=== PATIENT | female | born 1950 | race African-American/Black ===

== ENCOUNTER 2016-09-30 15:03 | Inpatient (IN) | payer MEDICARE, OTHER ==
[~2016-09-30] VITALS: Ht 165.1 cm; Wt 73.2 kg
[~2016-09-30 15:03] MED LIST: ACET-2902 PO; ALBU8HFA IH; ASPI-1093 PO; B CO1CAP4 PO; EPOE10003 SQ; FERR-89 PO; GABA-531 PO; HEPA500017 SQ; INSNOV SQ; ISOS10TA16 PO; LAMO100 PO; LEVE500T53 PO; MIDO5TAB PO; PANT40TA25 PO; SIMV-260 PO
[2016-09-30 15:37] LABS: GLUCOSE,POINT OF CARE 99 MG/DL (70-110)
[2016-09-30] MEDS ORDERED: DONNATAL/LIDOCAINE/MAALOX 55 ML BOTTLE PO ONE (16:15)
[2016-09-30 17:31] LABS: BASOPHILS % (AUTO) 0.2 % (0.0-2.0); EOSINOPHILS % (AUTO) 2.5 % (1.0-6.0); HEMATOCRIT 38.5 % (36-46); HEMOGLOBIN 11.9 g/dL (12.0-16.0); LYMPHOCYTES % (AUTO) 13.4 % (22.0-44.0); MEAN CORPUSCULAR HEMOGLOBIN 27.4 pg (26.0-34.0); MEAN CORPUSCULAR HGB CONC 30.8 G/dL (31.0-37.0); MEAN CORPUSCULAR VOLUME 89 fL (80-100); MONOCYTES # (AUTO) 0.6 K/uL (0.1-1.0); MONOCYTES % (AUTO) 8.3 % (2.0-9.0); NEUTROPHILS # (AUTO) 5.9 K/uL (1.8-7.7); NEUTROPHILS % (AUTO) 75.6 % (40.0-70.0); PLATELET COUNT (AUTO) 342 K/uL (150-450); RED BLOOD CELL COUNT(AUTO) 4.33 MIL/uL (4.00-5.20); WHITE BLOOD COUNT (AUTO) 7.8 K/uL (4.5-11.0)
[2016-09-30] MEDS ORDERED: BARIUM SULFATE 0.1% SUSPENSION 450 ML BOTTLE PO ONE (17:45)
[2016-09-30 18:03] LABS: CALCIUM, TOTAL 7.9 mg/dL (8.8-10.5); CREATININE 6.88 mg/dL (0.60-1.30); POTASSIUM 4.8 mmol/L (3.5-5.1)
[2016-09-30 18:10] LABS: ALBUMIN 3.4 g/dL (3.4-5.0); BILIRUBIN,TOTAL 0.5 mg/dL (0.1-1.0); TOTAL PROTEIN, SERUM 7.2 g/dL (6.4-8.2)
[2016-09-30] MEDS ORDERED: MAGNESIUM HYDROXIDE SUSPENSION 30 ML UDCUP PO PRN (23:00)
[2016-09-30] MEDS ORDERED: ONDANSETRON HCL 4 MG/2 ML VIAL IVP PRN (23:00)
[2016-09-30] MEDS ORDERED: ZOLPIDEM TARTRATE 5 MG TABLET PO PRN (23:00)
[2016-09-30 23:58] LABS: CALCIUM, TOTAL 7.4 mg/dL (8.8-10.5); CREATININE 7.05 mg/dL (0.60-1.30); POTASSIUM 4.5 mmol/L (3.5-5.1)
[2016-10-01 00:03] LABS: ALBUMIN 3.2 g/dL (3.4-5.0); BILIRUBIN,TOTAL 0.4 mg/dL (0.1-1.0); TOTAL PROTEIN, SERUM 6.7 g/dL (6.4-8.2)
[2016-10-01 00:15] VITALS: BP 118/63
[2016-10-01] MEDS: LevETIRAcetam 500 MG TABLET PO SCH ×2 (00:57→08:08)
[2016-10-01] MEDS: SIMVASTATIN 20 MG TABLET PO SCH (00:57)
[2016-10-01] MEDS: HEPARIN SODIUM,PORCINE 5,000 UNITS/ML VIAL SQ SCH ×3 (01:00→16:25)
[2016-10-01] MEDS: ACETAMINOPHEN 325 MG TABLET PO PRN ×2 (01:28→20:43)
[2016-10-01 04:34] VITALS: BP 106/56
[2016-10-01 07:17] LABS: GLUCOSE COMMENT 1 Juice/Food/D50 Given; GLUCOSE,POINT OF CARE 66 MG/DL (70-110)
[2016-10-01 07:17] LABS: GLUCOSE,POINT OF CARE 80 MG/DL (70-110)
[2016-10-01 07:29] VITALS: BP 125/89
[2016-10-01 07:41] LABS: BASOPHILS % (AUTO) 0.3 % (0.0-2.0); EOSINOPHILS % (AUTO) 5.8 % (1.0-6.0); HEMATOCRIT 36.6 % (36-46); HEMOGLOBIN 11.3 g/dL (12.0-16.0); LYMPHOCYTES # (AUTO) 1.4 K/uL (1.0-4.8); LYMPHOCYTES % (AUTO) 20.3 % (22.0-44.0); MEAN CORPUSCULAR HEMOGLOBIN 27.7 pg (26.0-34.0); MEAN CORPUSCULAR HGB CONC 30.9 G/dL (31.0-37.0); MEAN CORPUSCULAR VOLUME 90 fL (80-100); MONOCYTES # (AUTO) 0.5 K/uL (0.1-1.0); MONOCYTES % (AUTO) 7.1 % (2.0-9.0); NEUTROPHILS # (AUTO) 4.4 K/uL (1.8-7.7); NEUTROPHILS % (AUTO) 66.5 % (40.0-70.0); PLATELET COUNT (AUTO) 334 K/uL (150-450); RED BLOOD CELL COUNT(AUTO) 4.08 MIL/uL (4.00-5.20); RED CELL DISTRIBUTION WIDTH 17.2 % (11.5-14.5); WHITE BLOOD COUNT (AUTO) 6.7 K/uL (4.5-11.0)
[2016-10-01] MEDS: ASPIRIN 81 MG EC TABLET PO SCH (08:07)
[2016-10-01] MEDS: GABAPENTIN 300 MG CAPSULE PO SCH (08:07)
[2016-10-01] MEDS: LamoTRIgine 100 MG TABLET PO SCH (08:08)
[2016-10-01] MEDS: VITAMIN B COMP/VIT C/FOLIC ACID CAPSULE PO SCH (08:08)
[2016-10-01] MEDS: PANTOPRAZOLE SODIUM 40 MG DR TABLET PO SCH (08:08)
[2016-10-01] MEDS: ISOSORBIDE DINITRATE 10 MG TABLET PO SCH ×2 (09:00→16:00)
[2016-10-01] MEDS ORDERED: PANTOPRAZOLE SODIUM 40 MG DR TABLET PO SCH (09:00)
[2016-10-01 10:53] LABS: RBC MORPHOLOGY COMMENT ABNORMAL RBC MORPH
[2016-10-01 11:55] VITALS: BP 157/80
[2016-10-01] MEDS ORDERED: LIDOCAINE HCL/PF 1% 2 ML VIAL INJ ONE (12:00)
[2016-10-01 16:45] VITALS: BP 126/66
[2016-10-01 18:32] LABS: GLUCOSE,POINT OF CARE 116 MG/DL (70-110)
[2016-10-01 18:32] LABS: GLUCOSE,POINT OF CARE 79 MG/DL (70-110)
[2016-10-01 19:16] VITALS: BP 141/62
[2016-10-02 00:07] LABS: GLUCOSE,POINT OF CARE 107 MG/DL (70-110)
[2016-10-02] MEDS: LevETIRAcetam 500 MG TABLET PO SCH ×2 (01:21→09:19)
[2016-10-02] MEDS: ISOSORBIDE DINITRATE 10 MG TABLET PO SCH ×2 (01:21→09:19)
[2016-10-02] MEDS: SIMVASTATIN 20 MG TABLET PO SCH (01:21)
[2016-10-02] MEDS: GABAPENTIN 300 MG CAPSULE PO SCH ×2 (01:22→09:19)
[2016-10-02] MEDS: LamoTRIgine 100 MG TABLET PO SCH ×2 (01:22→09:19)
[2016-10-02] MEDS: HEPARIN SODIUM,PORCINE 5,000 UNITS/ML VIAL SQ SCH ×2 (01:27→09:19)
[2016-10-02 01:41] VITALS: BP 114/69
[2016-10-02 04:11] VITALS: BP 114/64
[2016-10-02 07:34] LABS: EOSINOPHILS # (AUTO) 0.29 K/uL (0.00-0.70); EOSINOPHILS % (AUTO) 5.47 % (1.0-6.0); HEMATOCRIT 33.9 % (36-46); HEMOGLOBIN 10.6 g/dL (12.0-16.0); LYMPHOCYTES # (AUTO) 0.9 K/uL (1.0-4.8); LYMPHOCYTES % (AUTO) 16.5 % (22.0-44.0); MEAN CORPUSCULAR HEMOGLOBIN 28.1 pg (26.0-34.0); MEAN CORPUSCULAR HGB CONC 31.4 G/dL (31.0-37.0); MEAN CORPUSCULAR VOLUME 90 fL (80-100); MONOCYTES # (AUTO) 0.2 K/uL (0.1-1.0); PLATELET COUNT (AUTO) 295 K/uL (150-450); RED BLOOD CELL COUNT(AUTO) 3.78 MIL/uL (4.00-5.20); RED CELL DISTRIBUTION WIDTH 18.1 % (11.5-14.5); WHITE BLOOD COUNT (AUTO) 5.4 K/uL (4.5-11.0)
[2016-10-02 07:35] LABS: RBC MORPHOLOGY COMMENT ABNORMAL RBC MORPH
[2016-10-02 07:43] VITALS: BP 135/64
[2016-10-02 07:57] LABS: GLUCOSE,POINT OF CARE 96 MG/DL (70-110)
[2016-10-02] MEDS: VITAMIN B COMP/VIT C/FOLIC ACID CAPSULE PO SCH (09:19)
[2016-10-02] MEDS: ASPIRIN 81 MG EC TABLET PO SCH (09:19)
[2016-10-02] MEDS: PANTOPRAZOLE SODIUM 40 MG DR TABLET PO SCH (09:19)
[2016-10-02 11:15] VITALS: BP 143/69
[2016-10-02 12:02] LABS: GLUCOSE,POINT OF CARE 76 MG/DL (70-110)
[2016-10-02 14:15] LABS: HEPATITIS Bs ANTIGEN SCREEN P Negative (Negative); HEPATITIS C AB SCREEN <0.1 s/co ratio (0.0-0.9)
== END 2016-10-02 14:10 | disposition home or self-care (01) | DRG 391 ==
LOC: EMS 15:05 → 6N 22:20
PROVIDERS: ADMIT Hospitalist; ATTEND Hospitalist
PROC: 5A1D00Z (ICD-10-PCS; principal; 2016-10-01)
DX: R10.9 Unspecified abdominal pain (principal); N18.6 End stage renal disease; I50.22 Chronic systolic (congestive) heart failure; I13.2 Hypertensive heart and chronic kidney disease with heart failure and with stage 5 chronic kidney disease, or end stage renal disease; J44.9 Chronic obstructive pulmonary disease, unspecified; E11.22 Type 2 diabetes mellitus with diabetic chronic kidney disease; K21.9 Gastro-esophageal reflux disease without esophagitis; K76.0 Fatty (change of) liver, not elsewhere classified; D73.4 Cyst of spleen; N26.1 Atrophy of kidney (terminal); D50.9 Iron deficiency anemia, unspecified; K57.30 Diverticulosis of large intestine without perforation or abscess without bleeding; K59.00 Constipation, unspecified; I48.91 Unspecified atrial fibrillation; D25.9 Leiomyoma of uterus, unspecified; E78.5 Hyperlipidemia, unspecified; I45.81 Long QT syndrome; R56.9 Unspecified convulsions; I95.9 Hypotension, unspecified; E21.2 Other hyperparathyroidism; R74.0 Nonspecific elevation of levels of transaminase and lactic acid dehydrogenase [LDH]; E66.9 Obesity, unspecified; K42.9 Umbilical hernia without obstruction or gangrene; Z82.49 Family history of ischemic heart disease and other diseases of the circulatory system; Z83.3 Family history of diabetes mellitus; Z99.2 Dependence on renal dialysis; Z79.82 Long term (current) use of aspirin; Z88.1 Allergy status to other antibiotic agents; Z98.51 Tubal ligation status; Z90.89 Acquired absence of other organs; Z88.6 Allergy status to analgesic agent; Z86.73 Personal history of transient ischemic attack (TIA), and cerebral infarction without residual deficits; Z68.26 Body mass index [BMI] 26.0-26.9, adult; R14.1 Gas pain
CPT/HCPCS: 74022; 74176; 76700; 80074; 82962; 87081; 87340; 90935; 93005; 99285; J1644; J3490

== ENCOUNTER 2017-04-05 14:30 | Emergency (ER) | payer MEDICARE, OTHER ==
[~2017-04-05] VITALS: Ht 165.1 cm; Wt 86.0 kg
[~2017-04-05 14:30] MED LIST changes: -ASPI-1093 PO; +ASPI-1182 PO; -HEPA500017 SQ
[2017-04-05] MEDS ORDERED: PHOSLOC PO (14:47)
[2017-04-05] MEDS ORDERED: METR500 PO (14:47)
[2017-04-05] MEDS ORDERED: CIPR-278 PO (14:47)
[2017-04-05 14:51] LABS: GLUCOSE,POINT OF CARE 101 MG/DL (70-110)
[2017-04-05 17:41] LABS: CALCIUM, TOTAL 7.1 mg/dL (8.8-10.5); CREATININE 9.31 mg/dL (0.60-1.30); POTASSIUM 5.6 mmol/L (3.5-5.1)
[2017-04-05] MEDS ORDERED: SODIUM POLYSTYRENE SULFONATE 15 GM/60 ML SUSPENSION BOTTLE PO ONE (18:15)
[2017-04-05 18:16] VITALS: BP 134/80
== END 2017-04-05 18:30 | disposition home or self-care (01) ==
LOC: EMS 14:34
DX: S70.362A Insect bite (nonvenomous), left thigh, initial encounter (principal); S70.361A Insect bite (nonvenomous), right thigh, initial encounter; I13.2 Hypertensive heart and chronic kidney disease with heart failure and with stage 5 chronic kidney disease, or end stage renal disease; E11.22 Type 2 diabetes mellitus with diabetic chronic kidney disease; N18.6 End stage renal disease; I50.9 Heart failure, unspecified; J44.9 Chronic obstructive pulmonary disease, unspecified; I48.91 Unspecified atrial fibrillation; K21.9 Gastro-esophageal reflux disease without esophagitis; E78.00 Pure hypercholesterolemia, unspecified; F17.210 Nicotine dependence, cigarettes, uncomplicated; Z86.73 Personal history of transient ischemic attack (TIA), and cerebral infarction without residual deficits; Z99.2 Dependence on renal dialysis; Z79.82 Long term (current) use of aspirin; Z88.5 Allergy status to narcotic agent; Z88.1 Allergy status to other antibiotic agents; W57.XXXA Bitten or stung by nonvenomous insect and other nonvenomous arthropods, initial encounter; Y93.89 Activity, other specified; Y92.89 Other specified places as the place of occurrence of the external cause; Y99.8 Other external cause status
CPT/HCPCS: 82962; 93005; 99285

== ENCOUNTER 2017-06-09 07:00 | Emergency (ER) | payer MEDICARE, OTHER ==
[~2017-06-09] VITALS: Ht 165.1 cm; Wt 77.3 kg
[~2017-06-09 07:00] MED LIST changes: +CIPR-278 PO; -INSNOV SQ; +METR500 PO; +PHOSLOC PO
[2017-06-09] MEDS ORDERED: AZITHROMYCIN 250 MG TABLET PO ONE (09:30)
[2017-06-09] MEDS ORDERED: IPRATROPIUM BROMIDE 0.5 MG/2.5 ML NEB SOLUTION NEB ONE (09:30)
[2017-06-09] MEDS ORDERED: ALBUTEROL SULFATE 5 MG/ML 20 ML NEB SOLN [BULK] NEB ONE (09:30)
[2017-06-09] MEDS ORDERED: 0.9% SODIUM CHLORIDE 5 ML NEB SOLUTION NEB ONE (10:43)
[2017-06-09 12:25] VITALS: BP 133/64
== END 2017-06-09 13:16 | disposition home or self-care (01) ==
LOC: EMS 07:03
DX: J81.1 Chronic pulmonary edema (principal); J40 Bronchitis, not specified as acute or chronic; I13.2 Hypertensive heart and chronic kidney disease with heart failure and with stage 5 chronic kidney disease, or end stage renal disease; N18.6 End stage renal disease; I50.9 Heart failure, unspecified; I48.91 Unspecified atrial fibrillation; E78.00 Pure hypercholesterolemia, unspecified; E11.9 Type 2 diabetes mellitus without complications; J44.9 Chronic obstructive pulmonary disease, unspecified; F17.210 Nicotine dependence, cigarettes, uncomplicated; Z99.2 Dependence on renal dialysis; Z88.1 Allergy status to other antibiotic agents; Z88.5 Allergy status to narcotic agent
CPT/HCPCS: 94640; 99283

== ENCOUNTER 2017-08-23 10:12 | Inpatient (IN) | payer MEDICARE, MEDICAID ==
[~2017-08-23] VITALS: Ht 165.1 cm; Wt 92.0 kg
[~2017-08-23 10:12] MED LIST changes: -ASPI-1182 PO; -CIPR-278 PO; -FERR-89 PO; -METR500 PO; -MIDO5TAB PO
[2017-08-23] MEDS ORDERED: ALBUTEROL SULFATE 5 MG/ML 20 ML NEB SOLN [BULK] NEB ONE (10:45)
[2017-08-23] MEDS ORDERED: IPRATROPIUM BROMIDE 0.5 MG/2.5 ML NEB SOLUTION NEB ONE (10:45)
[2017-08-23] MEDS ORDERED: MethylPREDNISolone SOD SUCC 125 MG/2 ML VIAL IVP ONE (10:45)
[2017-08-23] MEDS ORDERED: ACETAMINOPHEN 500 MG TABLET PO ONE (13:15)
[2017-08-23 13:59] LABS: BASOPHILS % (AUTO) 0.2 % (0.0-2.0); EOSINOPHILS % (AUTO) 1.1 % (1.0-6.0); HEMATOCRIT 34.7 % (36-46); LYMPHOCYTES # (AUTO) 0.8 K/uL (1.0-4.8); MEAN CORPUSCULAR HEMOGLOBIN 30.1 pg (26.0-34.0); MEAN CORPUSCULAR HGB CONC 31.7 G/dL (31.0-37.0); MEAN CORPUSCULAR VOLUME 95 fL (80-100); MONOCYTES # (AUTO) 0.8 K/uL (0.1-1.0); NEUTROPHILS # (AUTO) 5.3 K/uL (1.8-7.7); NEUTROPHILS % (AUTO) 76.7 % (40.0-70.0); PLATELET COUNT (AUTO) 190 K/uL (150-450); RED BLOOD CELL COUNT(AUTO) 3.64 MIL/uL (4.00-5.20); RED CELL DISTRIBUTION WIDTH 17.2 % (11.5-14.5)
[2017-08-23 14:08] LABS: ANION GAP 12 mmol/L (8-16); CALCIUM, TOTAL 7.4 mg/dL (8.8-10.5); CARBON DIOXIDE 32 mmol/L (22-29); CHLORIDE 99 mmol/L (98-107); GLOMERULAR FILTR. RATE CALC 6 mL/min (>60); GLUCOSE,RANDOM 145 mg/dL (70-110); POTASSIUM 4.6 mmol/L (3.5-5.1); SODIUM SERUM 143 mmol/L (136-145); UREA NITROGEN, BLOOD 59 mg/dL (7-18)
[2017-08-23 14:14] LABS: ALANINE AMINOTRANSFERASE 41 U/L (12-78); ALBUMIN 3.1 g/dL (3.4-5.0); ALKALINE PHOSPHATASE 141 U/L (46-116); ASPARTATE AMINOTRANSFERASE 34 U/L (15-37); BILIRUBIN,TOTAL 1.6 mg/dL (0.1-1.0); CREATINE KINASE, TOTAL 71 U/L (26-192); TOTAL PROTEIN, SERUM 6.6 g/dL (6.4-8.2)
[2017-08-23] MEDS ORDERED: HydrOXYzine PAMOATE 50 MG CAPSULE PO ONE (14:30)
[2017-08-23] MEDS ORDERED: ACETAMINOPHEN 325 MG TABLET PO PRN (14:45)
[2017-08-23] MEDS ORDERED: ONDANSETRON HCL 4 MG/2 ML VIAL IVP PRN (14:45)
[2017-08-23] MEDS ORDERED: BISACODYL 10 MG RECTAL RECTAL SUPPOSITORY PR PRN (14:45)
[2017-08-23] MEDS ORDERED: ALBUTEROL SULFATE 2.5 MG/0.5 ML NEB SOLUTION NEB SCH (15:00)
[2017-08-23] MEDS ORDERED: IPRATROPIUM BROMIDE 0.5 MG/2.5 ML NEB SOLUTION NEB SCH (15:00)
[2017-08-23 15:38] LABS: ABG A-A DIFF O2 87.6 mmHg (10-20.0); ABG BASE EXCESS -0.1 mmol/L (-2.0-3.0); ABG CARBOXYHEMOGLOBIN 1.1 % (0.0-1.5); ABG HCO3 22.9 mmol/L (22.0-26.0); ABG METHEMOGLOBIN 0.3 % (0.0-1.5); ABG OXYGEN SATURATION 96.3 % (95.0-98.0); ABG TOTAL HEMOGLOBIN 11.9 G/dL (12.0-18.0); O2 DEVICE,BLOOD GAS VENTI MASK (ROOM AIR); PO2, ARTERIAL BG 104.1 mmHg (79.0-87.0); SITE, BLOOD GAS RT RADIAL; SOURCE, BLOOD GAS ARTERIAL
[2017-08-23 15:49] LABS: INFLUENZA TYPE A NEGATIVE FOR TYPE A (NEGATIVE); INFLUENZA TYPE B NEGATIVE FOR TYPE B (NEGATIVE)
[2017-08-23 15:59] LABS: ABG PCO2 82 mmHg (35-45); ABG PH 7.161 (7.35-7.450)
[2017-08-23 16:26] LABS: ABG BASE EXCESS 1.6 mmol/L (-2.0-3.0); ABG HCO3 24.3 mmol/L (22.0-26.0); ABG METHEMOGLOBIN 0.2 % (0.0-1.5); ABG OXYHEMOGLOBIN 94.8 % (94.0-100.0); ABG TOTAL HEMOGLOBIN 11.9 G/dL (12.0-18.0); PO2, ARTERIAL BG 99.7 mmHg (79.0-87.0); SOURCE, BLOOD GAS ARTERIAL
[2017-08-23 16:28] LABS: ABG PCO2 82 mmHg (35-45); ABG PH 7.182 (7.35-7.450); O2 DEVICE,BLOOD GAS BIPAP (ROOM AIR); SITE, BLOOD GAS RT RADIAL
[2017-08-23] MEDS ORDERED: RAPID SEQUENCE KIT [RSI] 1 EACH KIT ONE (16:33)
[2017-08-23] MEDS ORDERED: SODIUM CHLORIDE 0.9% 2,000 ML IV ONE (16:38)
[2017-08-23] MEDS ORDERED: VECURONIUM BROMIDE 10 MG/VIAL IVP ONE ×2 (16:40→16:45)
[2017-08-23] MEDS ORDERED: ETOMIDATE 2 MG/ML 10 ML VIAL IV ONE (16:40)
[2017-08-23] MEDS ORDERED: ETOMIDATE 2 MG/ML 10 ML VIAL IVP ONE (16:45)
[2017-08-23] MEDS ORDERED: PROPOFOL 1000 MG/ISO-OSM 100 ML IV PRN (16:45)
[2017-08-23 17:22] LABS: ABG A-A DIFF O2 130.5 mmHg (10-20.0); ABG BASE EXCESS -0.8 mmol/L (-2.0-3.0); ABG HCO3 23.5 mmol/L (22.0-26.0); ABG METHEMOGLOBIN 0.3 % (0.0-1.5); ABG OXYGEN CONTENT 18.6 mL/dL (15.0-23.0); ABG OXYGEN SATURATION 99.7 % (95.0-98.0); ABG OXYHEMOGLOBIN 98.4 % (94.0-100.0); ABG PCO2 48 mmHg (35-45); ABG PH 7.335 (7.35-7.450); ABG TOTAL HEMOGLOBIN 12.4 G/dL (12.0-18.0); O2 DEVICE,BLOOD GAS VENTILATOR (ROOM AIR); PO2, ARTERIAL BG 535.4 mmHg (79.0-87.0); SITE, BLOOD GAS RT RADIAL; SOURCE, BLOOD GAS ARTERIAL
[2017-08-23 17:23] LABS: PEEP,BG 0 cm H2O; VT, ABG 550 ml
[2017-08-23] MEDS: MethylPREDNISolone SOD SUCC 125 MG/2 ML VIAL IVP SCH (18:45)
[2017-08-23] MEDS ORDERED: MANNITOL 25%-12.5 GM/50 ML VIAL IVP PRN (18:45)
[2017-08-23] MEDS: VITAMIN B COMP/VIT C/FOLIC ACID CAPSULE PO SCH (18:46)
[2017-08-23] MEDS: ALBUTEROL SULFATE 2.5 MG/0.5 ML NEB SOLUTION NEB PRN (19:49)
[2017-08-23] MEDS: IPRATROPIUM BROMIDE 0.5 MG/2.5 ML NEB SOLUTION NEB PRN (19:49)
[2017-08-23 20:00] VITALS: BP 135/70
[2017-08-23] MEDS ORDERED: LevETIRAcetam 500 MG TABLET PO SCH (21:00)
[2017-08-23] MEDS: HEPARIN SODIUM,PORCINE 5,000 UNITS/ML VIAL SQ SCH (22:35)
[2017-08-23] MEDS: DOCUSATE SODIUM 100 MG CAPSULE PO SCH (22:35)
[2017-08-23] MEDS ORDERED: VANCOMYCIN HCL 1 GM/D5% WATER 200 ML IV PRN (22:45)
[2017-08-23] MEDS ORDERED: VANCOMYCIN HCL 1 GM/D5% WATER 200 ML IV ONE (23:30)
[2017-08-24] VITALS: BP 144/76
[2017-08-24] MEDS ORDERED: SODIUM CHLORIDE 0.9% 250 ML IV ONE (00:31)
[2017-08-24] MEDS: PIPERACILLIN SODIUM/TAZOBACTAM 2.25 GM in DEXTROSE 5%-WATER 50 ML IV SCH ×3 (00:34→23:31)
[2017-08-24] MEDS: MethylPREDNISolone SOD SUCC 125 MG/2 ML VIAL IVP SCH ×5 (00:50→23:32)
[2017-08-24] MEDS: PROPOFOL 1000 MG/ISO-OSM 100 ML IV PRN ×3 (01:49→20:37)
[2017-08-24] MEDS: ALBUTEROL SULFATE 2.5 MG/0.5 ML NEB SOLUTION NEB PRN ×3 (01:59→22:03)
[2017-08-24] MEDS: IPRATROPIUM BROMIDE 0.5 MG/2.5 ML NEB SOLUTION NEB PRN ×3 (01:59→22:03)
[2017-08-24 04:00] VITALS: BP 110/59
[2017-08-24] MEDS ORDERED: VANCOMYCIN HCL 1 GM/D5% WATER 200 ML IV ONE (04:00)
[2017-08-24 05:28] LABS: HEMATOCRIT 34.3 % (36-46); HEMOGLOBIN 11.2 g/dL (12.0-16.0); MEAN CORPUSCULAR HEMOGLOBIN 30.7 pg (26.0-34.0); MEAN CORPUSCULAR HGB CONC 32.6 G/dL (31.0-37.0); MEAN CORPUSCULAR VOLUME 94 fL (80-100); PLATELET COUNT (AUTO) 187 K/uL (150-450); RED BLOOD CELL COUNT(AUTO) 3.64 MIL/uL (4.00-5.20); RED CELL DISTRIBUTION WIDTH 16.8 % (11.5-14.5)
[2017-08-24 05:35] LABS: CALCIUM, TOTAL 8.1 mg/dL (8.8-10.5); CREATININE 5.75 mg/dL (0.60-1.30); MAGNESIUM 1.7 mg/dL (1.80-2.40); PHOSPHORUS 3.6 mg/dL (2.5-4.9); POTASSIUM 5.2 mmol/L (3.5-5.1)
[2017-08-24 05:55] LABS: THYROID STIMULATING HORMONE 0.52 uIU/mL (0.36-3.74)
[2017-08-24] MEDS ORDERED: INFLUENZA VIRUS VACCINE QVS 2017-18 (3YR+)/PF 60 MCG/0.5 ML SYRINGE IM ONE (06:30)
[2017-08-24] MEDS ORDERED: PNEUMOCOCCAL VACCINE POLYVALENT 0.5 ML VIAL [PPSV23] IM ONE (06:30)
[2017-08-24 06:32] LABS: BAND NEUTROPHILS % (MANUAL) 43 % (1-5); LYMPHOCYTES % (MANUAL) 8 % (22-44); MONOCYTES % (MANUAL) 3 % (2-9); SEGMENTED NEUTROPHILS % 46 % (40-70)
[2017-08-24 08:00] VITALS: BP 119/59
[2017-08-24] MEDS ORDERED: DEXTROSE 50%-WATER 25 GM/50 ML SYRINGE IVP PRN (08:00)
[2017-08-24] MEDS ORDERED: MAGNESIUM OXIDE 400 MG TABLET NG ONE (08:15)
[2017-08-24] MEDS: LevETIRAcetam 500 MG in DEXTROSE 5%-WATER 100 ML IV SCH ×2 (08:24→20:32)
[2017-08-24] MEDS: HEPARIN SODIUM,PORCINE 5,000 UNITS/ML VIAL SQ SCH (08:32)
[2017-08-24] MEDS: LamoTRIgine 100 MG TABLET PO SCH ×2 (08:32→20:49)
[2017-08-24] MEDS: VITAMIN B COMP/VIT C/FOLIC ACID CAPSULE PO SCH (08:32)
[2017-08-24] MEDS: PANTOPRAZOLE SODIUM 40 MG DR TABLET PO SCH (08:33)
[2017-08-24 09:28] LABS: ABG A-A DIFF O2 168.5 mmHg (10-20.0); ABG BASE EXCESS -0.7 mmol/L (-2.0-3.0); ABG CARBOXYHEMOGLOBIN 0.8 % (0.0-1.5); ABG HCO3 24.3 mmol/L (22.0-26.0); ABG METHEMOGLOBIN 0.2 % (0.0-1.5); ABG OXYGEN CONTENT 15.6 mL/dL (15.0-23.0); ABG OXYGEN SATURATION 95.7 % (95.0-98.0); ABG OXYHEMOGLOBIN 94.7 % (94.0-100.0); ABG PCO2 33 mmHg (35-45); ABG PH 7.462 (7.35-7.450); ABG TOTAL HEMOGLOBIN 11.7 G/dL (12.0-18.0); PO2, ARTERIAL BG 78.6 mmHg (79.0-87.0); SOURCE, BLOOD GAS ARTERIAL; TEMPERATURE, FAHRENHEIT, BG 98.6 FAHREN (96.0-98.6)
[2017-08-24 09:36] LABS: O2 DEVICE,BLOOD GAS VENTILATOR (ROOM AIR); PEEP,BG 0 cm H2O; SITE, BLOOD GAS LFT RADIAL; VT, ABG 550 ml
[2017-08-24] MEDS: DOCUSATE SODIUM 100 MG CAPSULE PO SCH ×2 (10:08→20:49)
[2017-08-24 12:00] VITALS: BP 104/72
[2017-08-24] MEDS: INSULIN REGULAR, HUMAN 100 UNITS/ML SQ PRN ×2 (12:12→18:20)
[2017-08-24 13:22] LABS: GLUCOSE,POINT OF CARE 111 MG/DL (70-110)
[2017-08-24] MEDS ORDERED: AMIODARONE HCL 360 MG in DEXTROSE 5%-WATER 242.8 ML IV ONE (15:15)
[2017-08-24 16:00] VITALS: BP 118/72
[2017-08-24 18:33] LABS: GLUCOSE,POINT OF CARE 145 MG/DL (70-110)
[2017-08-24 20:00] VITALS: BP 110/55
[2017-08-24] MEDS: APIXABAN 5 MG TABLET PO SCH (20:48)
[2017-08-24] MEDS ORDERED: AMIODARONE HCL 540 MG in DEXTROSE 5%-WATER 239.2 ML IV ONE (21:15)
[2017-08-25] VITALS: BP 117/78
[2017-08-25] MEDS: PROPOFOL 1000 MG/ISO-OSM 100 ML IV PRN ×5 (00:28→18:46)
[2017-08-25 04:00] VITALS: BP 141/72
[2017-08-25 05:38] LABS: CREATININE 4.61 mg/dL (0.60-1.30); POTASSIUM 4.6 mmol/L (3.5-5.1)
[2017-08-25] MEDS: INSULIN REGULAR, HUMAN 100 UNITS/ML SQ PRN ×3 (06:26→17:47)
[2017-08-25] MEDS ORDERED: SODIUM CHLORIDE 0.9% 250 ML IV ONE ×2 (06:30→19:42)
[2017-08-25] MEDS: MethylPREDNISolone SOD SUCC 125 MG/2 ML VIAL IVP SCH ×3 (06:31→17:46)
[2017-08-25] MEDS: ALBUTEROL SULFATE 2.5 MG/0.5 ML NEB SOLUTION NEB PRN (07:46)
[2017-08-25] MEDS: IPRATROPIUM BROMIDE 0.5 MG/2.5 ML NEB SOLUTION NEB PRN (07:47)
[2017-08-25 08:00] VITALS: BP 137/75
[2017-08-25 08:24] LABS: GLUCOSE,POINT OF CARE 162 MG/DL (70-110)
[2017-08-25] MEDS: LamoTRIgine 100 MG TABLET PO SCH ×2 (08:35→20:00)
[2017-08-25] MEDS: APIXABAN 5 MG TABLET PO SCH ×2 (08:35→20:00)
[2017-08-25] MEDS: PANTOPRAZOLE SODIUM 40 MG DR TABLET PO SCH (08:35)
[2017-08-25] MEDS: VITAMIN B COMP/VIT C/FOLIC ACID CAPSULE PO SCH (08:36)
[2017-08-25] MEDS: DOCUSATE SODIUM 100 MG CAPSULE PO SCH ×2 (08:36→20:00)
[2017-08-25] MEDS: LevETIRAcetam 500 MG in DEXTROSE 5%-WATER 100 ML IV SCH ×2 (08:36→20:01)
[2017-08-25] MEDS ORDERED: DIGOXIN 250 MCG/ML 2 ML AMP IVP ONE (11:00)
[2017-08-25] MEDS: PIPERACILLIN SODIUM/TAZOBACTAM 2.25 GM in DEXTROSE 5%-WATER 50 ML IV SCH ×2 (11:15→23:27)
[2017-08-25 12:00] VITALS: BP 145/77
[2017-08-25] MEDS ORDERED: AMIODARONE HCL 750 MG in DEXTROSE 5%-WATER 485 ML IV SCH (15:30)
[2017-08-25 16:00] VITALS: BP 147/82
[2017-08-25 16:32] LABS: ABG A-A DIFF O2 39.7 mmHg (10-20.0); ABG CARBOXYHEMOGLOBIN 0.9 % (0.0-1.5); ABG HCO3 21.9 mmol/L (22.0-26.0); ABG METHEMOGLOBIN 0.3 % (0.0-1.5); ABG OXYGEN CONTENT 18.8 mL/dL (15.0-23.0); ABG OXYGEN SATURATION 99.4 % (95.0-98.0); ABG OXYHEMOGLOBIN 98.2 % (94.0-100.0); ABG PCO2 46 mmHg (35-45); ABG PH 7.318 (7.35-7.450); ABG TOTAL HEMOGLOBIN 13.3 G/dL (12.0-18.0); PO2, ARTERIAL BG 192.4 mmHg (79.0-87.0); SOURCE, BLOOD GAS ARTERIAL; TEMPERATURE, FAHRENHEIT, BG 98.6 FAHREN (96.0-98.6)
[2017-08-25 16:33] LABS: O2 DEVICE,BLOOD GAS VENTILATOR (ROOM AIR); PEEP,BG 0 cm H2O; PRESSURE SUPPORT, BG 10 cm H2O; SITE, BLOOD GAS RT RADIAL; VENT MODE, BG CPAP (ROOM AIR)
[2017-08-25 20:00] VITALS: BP 144/84
[2017-08-26] VITALS: BP 136/76
[2017-08-26] MEDS: MethylPREDNISolone SOD SUCC 125 MG/2 ML VIAL IVP SCH ×4 (00:04→17:01)
[2017-08-26] MEDS: PROPOFOL 1000 MG/ISO-OSM 100 ML IV PRN ×3 (00:05→10:31)
[2017-08-26] MEDS: INSULIN REGULAR, HUMAN 100 UNITS/ML SQ PRN ×3 (00:06→17:02)
[2017-08-26 04:00] VITALS: BP 123/77
[2017-08-26 05:51] LABS: VANCOMYCIN,RANDOM 19.4 mcg/mL (25.0-50.0)
[2017-08-26 07:20] LABS: CALCIUM, TOTAL 7.2 mg/dL (8.8-10.5); CREATININE 5.45 mg/dL (0.60-1.30); POTASSIUM 5.3 mmol/L (3.5-5.1)
[2017-08-26 08:00] VITALS: BP 123/75
[2017-08-26] MEDS ORDERED: MANNITOL 25%-12.5 GM/50 ML VIAL IVP PRN (09:45)
[2017-08-26] MEDS: VITAMIN B COMP/VIT C/FOLIC ACID CAPSULE PO SCH (10:15)
[2017-08-26] MEDS: DOCUSATE SODIUM 100 MG CAPSULE PO SCH ×2 (10:15→20:22)
[2017-08-26] MEDS: LamoTRIgine 100 MG TABLET PO SCH ×2 (10:15→20:22)
[2017-08-26] MEDS: METOPROLOL TARTRATE 25 MG TABLET NG SCH ×2 (10:15→20:22)
[2017-08-26] MEDS: PANTOPRAZOLE SODIUM 40 MG/VIAL IVP SCH (10:15)
[2017-08-26] MEDS: APIXABAN 5 MG TABLET PO SCH ×2 (10:15→20:22)
[2017-08-26] MEDS: LevETIRAcetam 500 MG in DEXTROSE 5%-WATER 100 ML IV SCH ×2 (10:16→20:24)
[2017-08-26] MEDS ORDERED: SODIUM CHLORIDE 0.9% 2,000 ML IV ONE (10:23)
[2017-08-26] MEDS ORDERED: VANCOMYCIN HCL 1 GM/D5% WATER 200 ML IV ONE (11:00)
[2017-08-26] MEDS: PIPERACILLIN SODIUM/TAZOBACTAM 2.25 GM in DEXTROSE 5%-WATER 50 ML IV SCH ×2 (11:26→23:10)
[2017-08-26 12:00] VITALS: BP 140/62
[2017-08-26 14:03] LABS: GLUCOSE,POINT OF CARE 182 MG/DL (70-110)
[2017-08-26 14:04] LABS: GLUCOSE,POINT OF CARE 162 MG/DL (70-110)
[2017-08-26 14:05] LABS: GLUCOSE,POINT OF CARE 205 MG/DL (70-110)
[2017-08-26 14:05] LABS: GLUCOSE,POINT OF CARE 189 MG/DL (70-110)
[2017-08-26 16:00] VITALS: BP 99/59
[2017-08-26 16:52] LABS: ABG A-A DIFF O2 41.3 mmHg (10-20.0); ABG BASE EXCESS -5.5 mmol/L (-2.0-3.0); ABG CARBOXYHEMOGLOBIN 0.9 % (0.0-1.5); ABG HCO3 20.5 mmol/L (22.0-26.0); ABG METHEMOGLOBIN 0.3 % (0.0-1.5); ABG OXYGEN CONTENT 18.6 mL/dL (15.0-23.0); ABG OXYGEN SATURATION 98.4 % (95.0-98.0); ABG OXYHEMOGLOBIN 97.2 % (94.0-100.0); ABG PCO2 37 mmHg (35-45); ABG PH 7.356 (7.35-7.450); ABG TOTAL HEMOGLOBIN 13.5 G/dL (12.0-18.0); PO2, ARTERIAL BG 129.6 mmHg (79.0-87.0); SOURCE, BLOOD GAS ARTERIAL; TEMPERATURE, FAHRENHEIT, BG 98.6 FAHREN (96.0-98.6)
[2017-08-26 16:53] LABS: GLUCOSE,POINT OF CARE 124 MG/DL (70-110)
[2017-08-26 16:53] LABS: SITE, BLOOD GAS LFT RADIAL
[2017-08-26 16:54] LABS: O2 DEVICE,BLOOD GAS VENTILATOR (ROOM AIR); PEEP,BG 0 cm H2O; PRESSURE SUPPORT, BG 8 cm H2O; VENT MODE, BG CPAP (ROOM AIR)
[2017-08-26 20:00] VITALS: BP 133/72
[2017-08-26] MEDS ORDERED: SODIUM CHLORIDE 0.9% 250 ML IV ONE (20:00)
[2017-08-26 21:18] LABS: GLUCOSE,POINT OF CARE 165 MG/DL (70-110)
[2017-08-27] VITALS (7 sets, daily range): BP systolic 132–173; BP diastolic 62–78
[2017-08-27] MEDS: MethylPREDNISolone SOD SUCC 125 MG/2 ML VIAL IVP SCH ×3 (00:29→11:20)
[2017-08-27] MEDS: ALBUTEROL SULFATE 2.5 MG/0.5 ML NEB SOLUTION NEB PRN ×2 (01:30→22:56)
[2017-08-27] MEDS: IPRATROPIUM BROMIDE 0.5 MG/2.5 ML NEB SOLUTION NEB PRN ×2 (01:30→22:56)
[2017-08-27 02:33] LABS: GLUCOSE,POINT OF CARE 131 MG/DL (70-110)
[2017-08-27] MEDS: ACETAMINOPHEN 325 MG TABLET PO PRN (04:34)
[2017-08-27 05:32] LABS: BASOPHILS % (AUTO) 0.2 % (0.0-2.0); EOSINOPHILS % (AUTO) 0 % (1.0-6.0); HEMATOCRIT 39.9 % (36-46); LYMPHOCYTES # (AUTO) 0.3 K/uL (1.0-4.8); LYMPHOCYTES % (AUTO) 4.4 % (22.0-44.0); MEAN CORPUSCULAR HEMOGLOBIN 30.1 pg (26.0-34.0); MEAN CORPUSCULAR HGB CONC 32.6 G/dL (31.0-37.0); MEAN CORPUSCULAR VOLUME 92 fL (80-100); MONOCYTES # (AUTO) 0.2 K/uL (0.1-1.0); MONOCYTES % (AUTO) 3.3 % (2.0-9.0); NEUTROPHILS # (AUTO) 6.1 K/uL (1.8-7.7); PLATELET COUNT (AUTO) 184 K/uL (150-450); RED BLOOD CELL COUNT(AUTO) 4.33 MIL/uL (4.00-5.20); RED CELL DISTRIBUTION WIDTH 16.7 % (11.5-14.5)
[2017-08-27 05:34] LABS: NEUTROPHILS % (AUTO) 92.1 % (40.0-70.0)
[2017-08-27 05:42] LABS: CREATININE 4.13 mg/dL (0.60-1.30); POTASSIUM 5.8 mmol/L (3.5-5.1)
[2017-08-27 06:57] LABS: GLUCOSE,POINT OF CARE 138 MG/DL (70-110)
[2017-08-27] MEDS: PANTOPRAZOLE SODIUM 40 MG/VIAL IVP SCH (08:56)
[2017-08-27] MEDS: LevETIRAcetam 500 MG in DEXTROSE 5%-WATER 100 ML IV SCH ×2 (08:56→22:25)
[2017-08-27] MEDS: APIXABAN 5 MG TABLET PO SCH ×2 (08:57→22:02)
[2017-08-27] MEDS: VITAMIN B COMP/VIT C/FOLIC ACID CAPSULE PO SCH (08:57)
[2017-08-27] MEDS: METOPROLOL TARTRATE 25 MG TABLET NG SCH ×2 (08:57→22:01)
[2017-08-27] MEDS: DOCUSATE SODIUM 100 MG CAPSULE PO SCH ×2 (08:57→21:00)
[2017-08-27] MEDS: LamoTRIgine 100 MG TABLET PO SCH ×2 (08:57→22:02)
[2017-08-27] MEDS: PIPERACILLIN SODIUM/TAZOBACTAM 2.25 GM in DEXTROSE 5%-WATER 50 ML IV SCH (11:19)
[2017-08-27] MEDS: INSULIN REGULAR, HUMAN 100 UNITS/ML SQ PRN (11:40)
[2017-08-27 11:43] LABS: GLUCOSE,POINT OF CARE 205 MG/DL (70-110)
[2017-08-27] MEDS: DOXYCYCLINE 100 MG CAPSULE PO SCH ×2 (13:32→22:02)
[2017-08-27] MEDS ORDERED: LIDOCAINE HCL/PF 1% 2 ML VIAL INJ ONE (16:48)
[2017-08-27] MEDS ORDERED: SODIUM CHLORIDE 0.9% 2,000 ML IV ONE (17:15)
[2017-08-27] MEDS: MethylPREDNISolone SOD SUCC 40 MG/ML VIAL IVP SCH ×2 (19:00→23:35)
[2017-08-27 19:43] LABS: GLUCOMETER DEV NAME(LOC) 5S 1M; GLUCOSE,POINT OF CARE 123 MG/DL (70-110)
[2017-08-27] MEDS ORDERED: SODIUM CHLORIDE 0.9% 50 ML ONE (22:17)
[2017-08-27] MEDS ORDERED: 0.9% SODIUM CHLORIDE 5 ML NEB SOLUTION NEB ONE (22:48)
[2017-08-28] MEDS: ACETAMINOPHEN 325 MG TABLET PO PRN ×3 (00:10→11:12)
[2017-08-28 00:18] VITALS: BP 154/83
[2017-08-28] MEDS ORDERED: BENZOCAINE/MENTHOL LOZENGE [8 LOZENGES/PACKET] PO PRN (03:00)
[2017-08-28 04:29] VITALS: BP 149/60
[2017-08-28] MEDS: MethylPREDNISolone SOD SUCC 40 MG/ML VIAL IVP SCH ×2 (06:12→16:46)
[2017-08-28 07:10] LABS: CREATININE 3.39 mg/dL (0.60-1.30)
[2017-08-28 07:47] VITALS: BP 143/83
[2017-08-28] MEDS: LevETIRAcetam 500 MG in DEXTROSE 5%-WATER 100 ML IV SCH ×2 (08:53→21:26)
[2017-08-28] MEDS: DOCUSATE SODIUM 100 MG CAPSULE PO SCH ×2 (09:00→21:26)
[2017-08-28 09:47] LABS: GLUCOMETER DEV NAME(LOC) 5S 1M; GLUCOSE,POINT OF CARE 114 MG/DL (70-110)
[2017-08-28 09:47] LABS: GLUCOMETER DEV NAME(LOC) 5S 1M; GLUCOSE,POINT OF CARE 140 MG/DL (70-110)
[2017-08-28] MEDS: METOPROLOL TARTRATE 25 MG TABLET NG SCH ×2 (09:50→21:26)
[2017-08-28] MEDS: VITAMIN B COMP/VIT C/FOLIC ACID CAPSULE PO SCH (09:50)
[2017-08-28] MEDS: APIXABAN 5 MG TABLET PO SCH ×2 (09:50→21:26)
[2017-08-28] MEDS: PANTOPRAZOLE SODIUM 40 MG/VIAL IVP SCH (09:50)
[2017-08-28] MEDS: DOXYCYCLINE 100 MG CAPSULE PO SCH ×2 (09:50→21:26)
[2017-08-28] MEDS: LamoTRIgine 100 MG TABLET PO SCH ×2 (09:50→21:26)
[2017-08-28 11:13] VITALS: BP 136/69
[2017-08-28] MEDS: ALBUTEROL SULFATE 2.5 MG/0.5 ML NEB SOLUTION NEB PRN ×2 (11:42→19:51)
[2017-08-28] MEDS: IPRATROPIUM BROMIDE 0.5 MG/2.5 ML NEB SOLUTION NEB PRN ×2 (11:42→19:51)
[2017-08-28 12:17] LABS: GLUCOMETER DEV NAME(LOC) 5N 1P; GLUCOSE,POINT OF CARE 182 MG/DL (70-110)
[2017-08-28] MEDS: INSULIN REGULAR, HUMAN 100 UNITS/ML SQ PRN ×3 (12:36→21:34)
[2017-08-28 15:01] VITALS: BP 127/65
[2017-08-28 20:02] LABS: GLUCOMETER DEV NAME(LOC) 5N 1P; GLUCOSE,POINT OF CARE 174 MG/DL (70-110)
[2017-08-28 20:13] VITALS: BP 150/63
[2017-08-28] MEDS ORDERED: SODIUM CHLORIDE 0.9% 100 ML ONE (21:29)
[2017-08-29 00:17] LABS: GLUCOMETER DEV NAME(LOC) 5N 1P; GLUCOSE,POINT OF CARE 265 MG/DL (70-110)
[2017-08-29 00:27] VITALS: BP 126/73
[2017-08-29] MEDS: MethylPREDNISolone SOD SUCC 40 MG/ML VIAL IVP SCH ×2 (00:43→08:41)
[2017-08-29] MEDS: ACETAMINOPHEN 325 MG TABLET PO PRN ×2 (04:07→17:08)
[2017-08-29 05:03] VITALS: BP 130/67
[2017-08-29 07:45] VITALS: BP 140/70
[2017-08-29] MEDS: LamoTRIgine 100 MG TABLET PO SCH ×2 (08:41→20:56)
[2017-08-29] MEDS: APIXABAN 5 MG TABLET PO SCH ×2 (08:41→20:56)
[2017-08-29] MEDS: DOXYCYCLINE 100 MG CAPSULE PO SCH ×2 (08:41→20:56)
[2017-08-29] MEDS: PANTOPRAZOLE SODIUM 40 MG/VIAL IVP SCH (08:41)
[2017-08-29] MEDS: LevETIRAcetam 500 MG in DEXTROSE 5%-WATER 100 ML IV SCH ×2 (08:41→20:57)
[2017-08-29] MEDS: METOPROLOL TARTRATE 25 MG TABLET NG SCH ×2 (08:42→20:56)
[2017-08-29] MEDS: VITAMIN B COMP/VIT C/FOLIC ACID CAPSULE PO SCH (08:42)
[2017-08-29] MEDS: DOCUSATE SODIUM 100 MG CAPSULE PO SCH ×2 (08:46→20:56)
[2017-08-29 11:51] VITALS: BP 125/73
[2017-08-29] MEDS ORDERED: DEXTROSE 50%-WATER 25 GM/50 ML SYRINGE IVP PRN (12:00)
[2017-08-29] MEDS: INSULIN LISPRO 100 UNITS/ML SQ PRN ×3 (12:17→20:58)
[2017-08-29] MEDS: PredniSONE 20 MG TABLET PO SCH (12:17)
[2017-08-29 12:28] LABS: GLUCOMETER DEV NAME(LOC) 5N 1P; GLUCOSE,POINT OF CARE 133 MG/DL (70-110)
[2017-08-29 12:28] LABS: GLUCOMETER DEV NAME(LOC) 5N 1P; GLUCOSE,POINT OF CARE 176 MG/DL (70-110)
[2017-08-29] MEDS: IPRATROPIUM BROMIDE 0.5 MG/2.5 ML NEB SOLUTION NEB PRN ×2 (14:41→20:37)
[2017-08-29] MEDS: ALBUTEROL SULFATE 2.5 MG/0.5 ML NEB SOLUTION NEB PRN ×2 (14:41→20:37)
[2017-08-29 15:34] VITALS: BP 136/69
[2017-08-29 17:17] LABS: GLUCOMETER DEV NAME(LOC) 5N 1P; GLUCOSE,POINT OF CARE 153 MG/DL (70-110)
[2017-08-29 20:21] VITALS: BP 144/80
[2017-08-30] VITALS (7 sets, daily range): BP systolic 109–137; BP diastolic 55–84
[2017-08-30] MEDS: IPRATROPIUM BROMIDE 0.5 MG/2.5 ML NEB SOLUTION NEB PRN ×2 (03:11→19:56)
[2017-08-30] MEDS: ALBUTEROL SULFATE 2.5 MG/0.5 ML NEB SOLUTION NEB PRN ×2 (03:11→19:56)
[2017-08-30 06:17] LABS: GLUCOMETER DEV NAME(LOC) 5N 1P; GLUCOSE,POINT OF CARE 200 MG/DL (70-110)
[2017-08-30 06:44] LABS: BASOPHILS % (AUTO) 0.2 % (0.0-2.0); EOSINOPHILS % (AUTO) 0 % (1.0-6.0); HEMATOCRIT 37.5 % (36-46); HEMOGLOBIN 12.1 g/dL (12.0-16.0); LYMPHOCYTES # (AUTO) 0.6 K/uL (1.0-4.8); LYMPHOCYTES % (AUTO) 4.8 % (22.0-44.0); MEAN CORPUSCULAR HEMOGLOBIN 29.8 pg (26.0-34.0); MEAN CORPUSCULAR HGB CONC 32.2 G/dL (31.0-37.0); MEAN CORPUSCULAR VOLUME 93 fL (80-100); MONOCYTES # (AUTO) 1.1 K/uL (0.1-1.0); MONOCYTES % (AUTO) 8.5 % (2.0-9.0); NEUTROPHILS # (AUTO) 11.2 K/uL (1.8-7.7); PLATELET COUNT (AUTO) 229 K/uL (150-450); RED BLOOD CELL COUNT(AUTO) 4.05 MIL/uL (4.00-5.20); RED CELL DISTRIBUTION WIDTH 16.7 % (11.5-14.5)
[2017-08-30 06:56] LABS: NEUTROPHILS % (AUTO) 86.5 % (40.0-70.0)
[2017-08-30 07:15] LABS: CALCIUM, TOTAL 6.1 mg/dL (8.8-10.5); CREATININE 6.89 mg/dL (0.60-1.30); MAGNESIUM 1.8 mg/dL (1.80-2.40); POTASSIUM 4.7 mmol/L (3.5-5.1); VANCOMYCIN,RANDOM 19.2 mcg/mL (25.0-50.0)
[2017-08-30] MEDS: LevETIRAcetam 500 MG in DEXTROSE 5%-WATER 100 ML IV SCH ×2 (08:53→20:25)
[2017-08-30] MEDS: DOXYCYCLINE 100 MG CAPSULE PO SCH ×2 (08:53→20:22)
[2017-08-30] MEDS: APIXABAN 5 MG TABLET PO SCH ×2 (08:53→20:23)
[2017-08-30] MEDS: PANTOPRAZOLE SODIUM 40 MG/VIAL IVP SCH (08:53)
[2017-08-30] MEDS: LamoTRIgine 100 MG TABLET PO SCH ×2 (08:55→20:23)
[2017-08-30] MEDS: VITAMIN B COMP/VIT C/FOLIC ACID CAPSULE PO SCH (08:55)
[2017-08-30] MEDS: DOCUSATE SODIUM 100 MG CAPSULE PO SCH ×2 (08:55→20:22)
[2017-08-30] MEDS: PredniSONE 20 MG TABLET PO SCH (08:55)
[2017-08-30] MEDS: METOPROLOL TARTRATE 25 MG TABLET NG SCH ×3 (09:00→20:22)
[2017-08-30] MEDS ORDERED: MANNITOL 25%-12.5 GM/50 ML VIAL IVP PRN (11:15)
[2017-08-30] MEDS ORDERED: MANNITOL 25%-12.5 GM/50 ML VIAL IVP ONE (12:30)
[2017-08-30] MEDS ORDERED: AMIODARONE HCL 360 MG in DEXTROSE 5%-WATER 242.8 ML IV ONE (14:15)
[2017-08-30] MEDS ORDERED: AMIODARONE HCL 150 MG in DEXTROSE 5%-WATER 97 ML IV ONE (14:15)
[2017-08-30] MEDS: ACETAMINOPHEN 325 MG TABLET PO PRN ×2 (18:36→22:53)
[2017-08-30] MEDS: INSULIN LISPRO 100 UNITS/ML SQ PRN ×2 (18:48→22:06)
[2017-08-30 18:52] LABS: GLUCOMETER DEV NAME(LOC) 5N 1P; GLUCOSE,POINT OF CARE 199 MG/DL (70-110)
[2017-08-30] MEDS ORDERED: AMIODARONE HCL 540 MG in DEXTROSE 5%-WATER 239.2 ML IV ONE (20:15)
[2017-08-31 05:07] VITALS: BP 103/58
[2017-08-31] MEDS ORDERED: VANCOMYCIN HCL 1 GM/D5% WATER 200 ML IV ONE (06:00)
[2017-08-31 07:35] VITALS: BP 94/62
[2017-08-31 08:27] LABS: GLUCOMETER DEV NAME(LOC) 5N 1P; GLUCOSE,POINT OF CARE 171 MG/DL (70-110)
[2017-08-31] MEDS: DOXYCYCLINE 100 MG CAPSULE PO SCH ×2 (08:30→20:21)
[2017-08-31] MEDS: VITAMIN B COMP/VIT C/FOLIC ACID CAPSULE PO SCH (08:30)
[2017-08-31] MEDS: DOCUSATE SODIUM 100 MG CAPSULE PO SCH ×2 (08:30→20:22)
[2017-08-31] MEDS: PredniSONE 20 MG TABLET PO SCH (08:30)
[2017-08-31] MEDS: APIXABAN 5 MG TABLET PO SCH ×2 (08:30→20:21)
[2017-08-31] MEDS: LamoTRIgine 100 MG TABLET PO SCH ×2 (08:30→20:21)
[2017-08-31] MEDS: GABAPENTIN 300 MG CAPSULE PO SCH ×2 (08:30→20:21)
[2017-08-31] MEDS: METOPROLOL TARTRATE 25 MG TABLET NG SCH ×2 (08:31→20:16)
[2017-08-31] MEDS: LevETIRAcetam 500 MG TABLET PO SCH ×2 (10:18→20:21)
[2017-08-31] MEDS: PANTOPRAZOLE SODIUM 40 MG/VIAL IVP SCH (10:18)
[2017-08-31] MEDS ORDERED: SODIUM CHLORIDE 0.9% 100 ML ONE (10:27)
[2017-08-31 11:43] VITALS: BP 99/57
[2017-08-31] MEDS ORDERED: AMIODARONE HCL 750 MG in DEXTROSE 5%-WATER 485 ML IV SCH (14:30)
[2017-08-31 16:01] VITALS: BP 103/57
[2017-08-31] MEDS ORDERED: DIGOXIN 250 MCG/ML 2 ML AMP IVP ONE (17:15)
[2017-08-31] MEDS: INSULIN LISPRO 100 UNITS/ML SQ PRN ×2 (18:03→20:20)
[2017-08-31 19:31] VITALS: BP 102/57
[2017-08-31] MEDS: OXYGEN THERAPY IH SCH (20:14)
[2017-08-31] MEDS: AMIODARONE HCL 200 MG TABLET PO SCH (20:21)
[2017-08-31] MEDS ORDERED: LamoTRIgine 100 MG TABLET PO SCH (21:00)
[2017-08-31 23:19] VITALS: BP 101/59
[2017-09-01 00:33] LABS: GLUCOMETER DEV NAME(LOC) 5N 1P; GLUCOSE,POINT OF CARE 133 MG/DL (70-110)
[2017-09-01 05:17] VITALS: BP 92/66
[2017-09-01 07:05] VITALS: BP 96/58
[2017-09-01 07:08] LABS: GLUCOMETER DEV NAME(LOC) 5S 2N; GLUCOSE,POINT OF CARE 138 MG/DL (70-110)
[2017-09-01 07:08] LABS: GLUCOMETER DEV NAME(LOC) 5S 2N; GLUCOSE,POINT OF CARE 149 MG/DL (70-110)
[2017-09-01 07:08] LABS: GLUCOMETER DEV NAME(LOC) 5S 2N; GLUCOSE,POINT OF CARE 124 MG/DL (70-110)
[2017-09-01 07:08] LABS: GLUCOMETER DEV NAME(LOC) 5S 2N; GLUCOSE,POINT OF CARE 93 MG/DL (70-110)
[2017-09-01 07:08] LABS: GLUCOMETER DEV NAME(LOC) 5S 2N; GLUCOSE,POINT OF CARE 175 MG/DL (70-110)
[2017-09-01 07:08] LABS: GLUCOMETER DEV NAME(LOC) 5N 1P; GLUCOSE,POINT OF CARE 80 MG/DL (70-110)
[2017-09-01] MEDS: OXYGEN THERAPY IH SCH ×2 (07:53→20:06)
[2017-09-01] MEDS: PANTOPRAZOLE SODIUM 40 MG/VIAL IVP SCH (07:54)
[2017-09-01] MEDS: DOCUSATE SODIUM 100 MG CAPSULE PO SCH ×2 (07:54→20:05)
[2017-09-01] MEDS: METOPROLOL TARTRATE 25 MG TABLET NG SCH ×2 (07:54→20:06)
[2017-09-01] MEDS: PredniSONE 20 MG TABLET PO SCH (07:55)
[2017-09-01] MEDS: LevETIRAcetam 500 MG TABLET PO SCH ×2 (07:55→20:05)
[2017-09-01] MEDS: APIXABAN 5 MG TABLET PO SCH ×2 (07:55→20:05)
[2017-09-01] MEDS: AMIODARONE HCL 200 MG TABLET PO SCH ×2 (07:56→20:05)
[2017-09-01] MEDS: DOXYCYCLINE 100 MG CAPSULE PO SCH ×2 (07:56→20:05)
[2017-09-01] MEDS: GABAPENTIN 300 MG CAPSULE PO SCH ×2 (07:56→20:05)
[2017-09-01 08:07] LABS: BASOPHILS % (AUTO) 0.3 % (0.0-2.0); EOSINOPHILS % (AUTO) 0.3 % (1.0-6.0); HEMATOCRIT 36.9 % (36-46); LYMPHOCYTES # (AUTO) 1.3 K/uL (1.0-4.8); LYMPHOCYTES % (AUTO) 8.7 % (22.0-44.0); MEAN CORPUSCULAR HGB CONC 32.4 G/dL (31.0-37.0); MEAN CORPUSCULAR VOLUME 93 fL (80-100); MONOCYTES # (AUTO) 1.3 K/uL (0.1-1.0); MONOCYTES % (AUTO) 9.2 % (2.0-9.0); NEUTROPHILS # (AUTO) 11.8 K/uL (1.8-7.7); NEUTROPHILS % (AUTO) 81.5 % (40.0-70.0); PLATELET COUNT (AUTO) 211 K/uL (150-450); RED BLOOD CELL COUNT(AUTO) 3.98 MIL/uL (4.00-5.20); RED CELL DISTRIBUTION WIDTH 16.5 % (11.5-14.5)
[2017-09-01 08:31] LABS: CREATININE 7.41 mg/dL (0.60-1.30); MAGNESIUM 1.6 mg/dL (1.80-2.40); PHOSPHORUS 6.8 mg/dL (2.5-4.9); POTASSIUM 4.9 mmol/L (3.5-5.1)
[2017-09-01] MEDS ORDERED: VITAMIN B COMP/VIT C/FOLIC ACID CAPSULE PO SCH (09:00)
[2017-09-01] MEDS ORDERED: MAGNESIUM SULFATE 2 GM in DEXTROSE 5%-WATER 50 ML IV ONE (10:00)
[2017-09-01] MEDS: LamoTRIgine 100 MG TABLET PO SCH ×2 (10:06→20:05)
[2017-09-01 11:10] VITALS: BP 102/53
[2017-09-01 12:23] LABS: GLUCOMETER DEV NAME(LOC) 5S 2N; GLUCOSE,POINT OF CARE 122 MG/DL (70-110)
[2017-09-01] MEDS: IPRATROPIUM BROMIDE 0.5 MG/2.5 ML NEB SOLUTION NEB PRN (14:23)
[2017-09-01] MEDS: ALBUTEROL SULFATE 2.5 MG/0.5 ML NEB SOLUTION NEB PRN (14:23)
[2017-09-01 14:56] VITALS: BP 99/32
[2017-09-01] MEDS: VITAMIN B COMP/VIT C/FOLIC ACID CAPSULE PO SCH (17:17)
[2017-09-01] MEDS ORDERED: LIDOCAINE HCL/PF 1% 2 ML VIAL ID PRN (18:00)
[2017-09-01] MEDS ORDERED: MANNITOL 25%-12.5 GM/50 ML VIAL IVP PRN (18:00)
[2017-09-01] MEDS ORDERED: DiphenhydrAMINE HCL 50 MG/ML VIAL IVP PRN (18:00)
[2017-09-01 19:16] VITALS: BP 101/56
[2017-09-01] MEDS: INSULIN LISPRO 100 UNITS/ML SQ PRN (20:04)
[2017-09-01 20:48] LABS: GLUCOMETER DEV NAME(LOC) 5N 1P; GLUCOSE,POINT OF CARE 122 MG/DL (70-110)
[2017-09-01 20:48] LABS: GLUCOMETER DEV NAME(LOC) 5N 1P; GLUCOSE,POINT OF CARE 152 MG/DL (70-110)
[2017-09-01] MEDS: ACETAMINOPHEN 325 MG TABLET PO PRN (21:28)
[2017-09-02 00:07] VITALS: BP 137/84
[2017-09-02] MEDS: ACETAMINOPHEN 325 MG TABLET PO PRN ×2 (01:55→11:11)
[2017-09-02 04:50] VITALS: BP 119/46
[2017-09-02 07:31] VITALS: BP 110/44
[2017-09-02] MEDS: METOPROLOL TARTRATE 25 MG TABLET NG SCH ×2 (09:00→11:25)
[2017-09-02] MEDS: PANTOPRAZOLE SODIUM 40 MG/VIAL IVP SCH (09:21)
[2017-09-02] MEDS: OXYGEN THERAPY IH SCH (09:21)
[2017-09-02] MEDS: DOCUSATE SODIUM 100 MG CAPSULE PO SCH (09:21)
[2017-09-02] MEDS: VITAMIN B COMP/VIT C/FOLIC ACID CAPSULE PO SCH (09:22)
[2017-09-02] MEDS: AMIODARONE HCL 200 MG TABLET PO SCH (09:22)
[2017-09-02] MEDS: APIXABAN 5 MG TABLET PO SCH (09:22)
[2017-09-02] MEDS: LamoTRIgine 100 MG TABLET PO SCH (09:22)
[2017-09-02] MEDS: PredniSONE 20 MG TABLET PO SCH (09:22)
[2017-09-02] MEDS: LevETIRAcetam 500 MG TABLET PO SCH (09:22)
[2017-09-02] MEDS: DOXYCYCLINE 100 MG CAPSULE PO SCH (09:22)
[2017-09-02] MEDS: GABAPENTIN 300 MG CAPSULE PO SCH (09:22)
[2017-09-02 11:18] VITALS: BP 129/73
[2017-09-02] MEDS ORDERED: VANCOMYCIN HCL 1 GM/D5% WATER 200 ML IV ONE (12:00)
[2017-09-02 12:18] LABS: GLUCOMETER DEV NAME(LOC) 5N 1P; GLUCOSE,POINT OF CARE 128 MG/DL (70-110)
[2017-09-02 15:14] VITALS: BP 110/58
[2017-09-02] MEDS: INSULIN LISPRO 100 UNITS/ML SQ PRN (17:42)
[2017-09-02] MEDS ORDERED: MANNITOL 25%-12.5 GM/50 ML VIAL IVP ONE (17:44)
[2017-09-02] MEDS ORDERED: LIDOCAINE HCL/PF 1% 2 ML VIAL ONE (17:44)
[2017-09-02 18:07] LABS: GLUCOMETER DEV NAME(LOC) 5N 1P; GLUCOSE,POINT OF CARE 167 MG/DL (70-110)
[2017-09-03 17:23] LABS: GLUCOMETER DEV NAME(LOC) 5S 2N; GLUCOSE,POINT OF CARE 102 MG/DL (70-110)
== END 2017-09-02 18:20 | DRG 208 ==
LOC: EMS 10:14 → ICU 16:04 → 5S 08-27 16:40
PROVIDERS: ADMIT Internal Medicine; ATTEND Internal Medicine
PROC: 5A1945Z Respiratory Ventilation, 24-96 Consecutive Hours (ICD-10-PCS; principal; 2017-08-23)
PROC: 0BH17EZ Insertion of Endotracheal Airway into Trachea, Via Natural or Artificial Opening (ICD-10-PCS; 2017-08-23)
PROC: 5A1D70Z Performance of Urinary Filtration, Intermittent, Less than 6 Hours Per Day (ICD-10-PCS; 2017-08-24)
PROC: 5A1D70Z Performance of Urinary Filtration, Intermittent, Less than 6 Hours Per Day (ICD-10-PCS; 2017-08-27)
PROC: 5A1D70Z Performance of Urinary Filtration, Intermittent, Less than 6 Hours Per Day (ICD-10-PCS; 2017-08-31)
DX: J96.01 Acute respiratory failure with hypoxia (principal); G93.41 Metabolic encephalopathy; I13.2 Hypertensive heart and chronic kidney disease with heart failure and with stage 5 chronic kidney disease, or end stage renal disease; I48.91 Unspecified atrial fibrillation; Z99.11 Dependence on respirator [ventilator] status; N17.9 Acute kidney failure, unspecified; I48.92 Unspecified atrial flutter; E11.22 Type 2 diabetes mellitus with diabetic chronic kidney disease; E11.65 Type 2 diabetes mellitus with hyperglycemia; N18.6 End stage renal disease; I50.33 Acute on chronic diastolic (congestive) heart failure; J44.1 Chronic obstructive pulmonary disease with (acute) exacerbation; F23 Brief psychotic disorder; I69.354 Hemiplegia and hemiparesis following cerebral infarction affecting left non-dominant side; E87.5 Hyperkalemia; D63.1 Anemia in chronic kidney disease; E78.00 Pure hypercholesterolemia, unspecified; E78.5 Hyperlipidemia, unspecified; J96.02 Acute respiratory failure with hypercapnia; K21.9 Gastro-esophageal reflux disease without esophagitis; F17.210 Nicotine dependence, cigarettes, uncomplicated; D64.9 Anemia, unspecified; Z99.2 Dependence on renal dialysis; Z88.5 Allergy status to narcotic agent; Z88.1 Allergy status to other antibiotic agents; Z86.718 Personal history of other venous thrombosis and embolism; Z98.51 Tubal ligation status; Z79.899 Other long term (current) drug therapy; Z82.49 Family history of ischemic heart disease and other diseases of the circulatory system; Z83.3 Family history of diabetes mellitus
CPT/HCPCS: 82805; 82962; 83735; 84100; 84145; 84443; 86704; 86706; 87040; 87070; 87081; 87205; 87340; 87804; 90935; 92610; 93005; 93306; 94002; 94003; 94640; 94644; 96374; 96375; 97163; 97167; 97530; 97535; 99285; C9113; J0282; J0712; J1160; J1644; J2150; J2543; J2704; J2920; J2930; J3370; J3475; J3490; J7030; J7050; J7060

== ENCOUNTER 2017-10-01 12:15 | Inpatient (IN) | payer OTHER, MEDICAID ==
[~2017-10-01] VITALS: Ht 165.1 cm; Wt 74.0 kg
[~2017-10-01 12:15] MED LIST changes: +ALBUMIN HUMAN 25%-12.5GM/50ML IV BOTTLE IV ONE; +LIDOCAINE HCL/PF 1% 2 ML VIAL INJ ONE; +MANNITOL 25%-12.5 GM/50 ML VIAL IVP ONE; -PANT40TA25 PO; -SIMV-260 PO
[2017-10-01 12:32] LABS: GLUCOSE,POINT OF CARE 169 MG/DL (70-110)
[2017-10-01 12:35] LABS: ABG A-A DIFF O2 304.4 mmHg (10-20.0); ABG BASE EXCESS 0.6 mmol/L (-2.0-3.0); ABG CARBOXYHEMOGLOBIN 2.4 % (0.0-1.5); ABG HCO3 24.5 mmol/L (22.0-26.0); ABG METHEMOGLOBIN 0.3 % (0.0-1.5); ABG OXYGEN CONTENT 13.3 mL/dL (15.0-23.0); ABG OXYGEN SATURATION 92.5 % (95.0-98.0); ABG PCO2 51 mmHg (35-45); ABG PH 7.332 (7.35-7.450); ABG TOTAL HEMOGLOBIN 10.5 G/dL (12.0-18.0); O2 DEVICE,BLOOD GAS BIPAP (ROOM AIR); PO2, ARTERIAL BG 67.2 mmHg (79.0-87.0); SITE, BLOOD GAS LFT RADIAL; SOURCE, BLOOD GAS ARTERIAL; TEMPERATURE, FAHRENHEIT, BG 98.6 FAHREN (96.0-98.6)
[2017-10-01] MEDS ORDERED: METO25 PO (12:37)
[2017-10-01] MEDS ORDERED: AMIO200T44 PO (12:37)
[2017-10-01] MEDS ORDERED: ZALE10CA26 PO (12:37)
[2017-10-01] MEDS ORDERED: CITA10TA68 PO (12:37)
[2017-10-01] MEDS ORDERED: APIX5TAB PO (12:37)
[2017-10-01] MEDS ORDERED: PANT40TA25 PO (12:37)
[2017-10-01] MEDS ORDERED: SODIUM CHLORIDE 0.9% 500 ML IV ONE (13:00)
[2017-10-01] MEDS ORDERED: ACETAMINOPHEN 500 MG TABLET PO ONE (13:00)
[2017-10-01] MEDS: CefTAZidime PENTAHYDRATE 1 GM in DEXTROSE 5%-WATER 50 ML IV ONE ×2 (14:17→15:21)
[2017-10-01] MEDS: VANCOMYCIN HCL 1 GM/D5% WATER 200 ML IV ONE ×2 (14:18→16:21)
[2017-10-01 14:27] LABS: BASOPHILS % (AUTO) 0.3 % (0.0-2.0); EOSINOPHILS % (AUTO) 0.1 % (1.0-6.0); HEMATOCRIT 31.4 % (36-46); HEMOGLOBIN 9.8 g/dL (12.0-16.0); LYMPHOCYTES # (AUTO) 0.6 K/uL (1.0-4.8); LYMPHOCYTES % (AUTO) 4.2 % (22.0-44.0); MEAN CORPUSCULAR HGB CONC 31.1 G/dL (31.0-37.0); MEAN CORPUSCULAR VOLUME 96 fL (80-100); MONOCYTES # (AUTO) 0.8 K/uL (0.1-1.0); MONOCYTES % (AUTO) 6.2 % (2.0-9.0); NEUTROPHILS # (AUTO) 11.6 K/uL (1.8-7.7); PLATELET COUNT (AUTO) 326 K/uL (150-450); RED BLOOD CELL COUNT(AUTO) 3.26 MIL/uL (4.00-5.20)
[2017-10-01 14:28] LABS: NEUTROPHILS % (AUTO) 89.2 % (40.0-70.0)
[2017-10-01] MEDS ORDERED: ALBUTEROL SULFATE 2.5 MG/0.5 ML NEB SOLUTION NEB PRN (14:30)
[2017-10-01] MEDS ORDERED: BISACODYL 10 MG RECTAL RECTAL SUPPOSITORY PR PRN (14:30)
[2017-10-01 14:38] LABS: ANION GAP 13 mmol/L (8-16); CARBON DIOXIDE 28 mmol/L (22-29); CHLORIDE 96 mmol/L (98-107); CREATININE 6.35 mg/dL (0.60-1.30); GLOMERULAR FILTR. RATE CALC 8 mL/min (>60); GLUCOSE,RANDOM 160 mg/dL (70-110); POTASSIUM 4.7 mmol/L (3.5-5.1); SODIUM SERUM 137 mmol/L (136-145); UREA NITROGEN, BLOOD 48 mg/dL (7-18)
[2017-10-01 14:39] LABS: INR 1.1 (0.9-1.1); PROTHROMBIN TIME 11.8 SEC (9.4-11.6)
[2017-10-01] MEDS ORDERED: DEXTROSE 50%-WATER 25 GM/50 ML SYRINGE IVP PRN (14:45)
[2017-10-01 14:51] LABS: ALANINE AMINOTRANSFERASE 100 U/L (12-78); ALBUMIN 2.7 g/dL (3.4-5.0); ALKALINE PHOSPHATASE 128 U/L (46-116); ASPARTATE AMINOTRANSFERASE 86 U/L (15-37); BILIRUBIN,TOTAL 0.4 mg/dL (0.1-1.0); CREATINE KINASE, TOTAL 43 U/L (26-192); TOTAL PROTEIN, SERUM 6.7 g/dL (6.4-8.2)
[2017-10-01] MEDS ORDERED: VANCOMYCIN HCL 1 GM/D5% WATER 200 ML IV PRN (15:15)
[2017-10-01] MEDS: MethylPREDNISolone SOD SUCC 125 MG/2 ML VIAL IVP SCH ×2 (15:20→18:03)
[2017-10-01] MEDS: PIPERACILLIN SODIUM/TAZOBACTAM 2.25 GM in DEXTROSE 5%-WATER 50 ML IV SCH (16:22)
[2017-10-01] MEDS ORDERED: SODIUM CHLORIDE 0.9% 250 ML IV ONE (16:24)
[2017-10-01 16:46] VITALS: BP 117/69
[2017-10-01 18:03] LABS: GLUCOSE,POINT OF CARE 164 MG/DL (70-110)
[2017-10-01 20:00] VITALS: BP 108/59
[2017-10-01] MEDS: HEPARIN SODIUM,PORCINE 5,000 UNITS/ML VIAL SQ SCH (20:42)
[2017-10-01] MEDS: DOCUSATE SODIUM 100 MG CAPSULE PO SCH (20:42)
[2017-10-01] MEDS: LevETIRAcetam 500 MG TABLET PO SCH (20:42)
[2017-10-01] MEDS ORDERED: LIDOCAINE HCL/PF 1% 2 ML VIAL ID PRN (22:00)
[2017-10-01] MEDS ORDERED: MANNITOL 25%-12.5 GM/50 ML VIAL IVP PRN (22:00)
[2017-10-01 22:18] LABS: GLUCOSE,POINT OF CARE 123 MG/DL (70-110)
[2017-10-01] MEDS ORDERED: ALBUMIN HUMAN 25%-12.5GM/50ML IV BOTTLE IV PRN (22:45)
[2017-10-02] VITALS: BP 93/59
[2017-10-02] MEDS: MethylPREDNISolone SOD SUCC 125 MG/2 ML VIAL IVP SCH ×4 (00:28→17:36)
[2017-10-02] MEDS ORDERED: SODIUM CHLORIDE 0.9% 100 ML ONE ×2 (00:33→06:27)
[2017-10-02] MEDS: PIPERACILLIN SODIUM/TAZOBACTAM 2.25 GM in DEXTROSE 5%-WATER 50 ML IV SCH ×3 (00:41→16:10)
[2017-10-02 04:00] VITALS: BP 85/52
[2017-10-02 05:28] LABS: GLUCOSE,POINT OF CARE 141 MG/DL (70-110)
[2017-10-02 05:31] LABS: BASOPHILS % (AUTO) 0.2 % (0.0-2.0); EOSINOPHILS % (AUTO) 0 % (1.0-6.0); HEMATOCRIT 28.6 % (36-46); HEMOGLOBIN 9.2 g/dL (12.0-16.0); LYMPHOCYTES # (AUTO) 0.5 K/uL (1.0-4.8); LYMPHOCYTES % (AUTO) 4.3 % (22.0-44.0); MEAN CORPUSCULAR HGB CONC 32.3 G/dL (31.0-37.0); MEAN CORPUSCULAR VOLUME 96 fL (80-100); MONOCYTES # (AUTO) 0.1 K/uL (0.1-1.0); MONOCYTES % (AUTO) 1.2 % (2.0-9.0); NEUTROPHILS # (AUTO) 10.1 K/uL (1.8-7.7); PLATELET COUNT (AUTO) 302 K/uL (150-450); RED BLOOD CELL COUNT(AUTO) 2.98 MIL/uL (4.00-5.20); RED CELL DISTRIBUTION WIDTH 17.8 % (11.5-14.5)
[2017-10-02 06:15] LABS: NEUTROPHILS % (AUTO) 94.3 % (40.0-70.0)
[2017-10-02 07:09] LABS: HEMOGLOBIN A1C 6.3 % (4.5-6.2)
[2017-10-02 07:28] LABS: % IRON SATURATION 35.2 % (22-44)
[2017-10-02 07:40] LABS: ALBUMIN 2.7 g/dL (3.4-5.0); BILIRUBIN,TOTAL 0.5 mg/dL (0.1-1.0); CALCIUM, TOTAL 9.7 mg/dL (8.8-10.5); CREATININE 4.01 mg/dL (0.60-1.30); MAGNESIUM 1.8 mg/dL (1.80-2.40); PHOSPHORUS 3.8 mg/dL (2.5-4.9); POTASSIUM 4.5 mmol/L (3.5-5.1); TOTAL PROTEIN, SERUM 7.2 g/dL (6.4-8.2)
[2017-10-02 07:54] LABS: VANCOMYCIN,RANDOM 14.2 mcg/mL (25.0-50.0)
[2017-10-02 08:00] VITALS: BP 130/74
[2017-10-02] MEDS ORDERED: VANCOMYCIN HCL 1 GM/D5% WATER 200 ML IV ONE (10:00)
[2017-10-02 10:13] LABS: GLUCOSE,POINT OF CARE 139 MG/DL (70-110)
[2017-10-02] MEDS: LevETIRAcetam 500 MG TABLET PO SCH ×2 (10:37→21:19)
[2017-10-02] MEDS: DOCUSATE SODIUM 100 MG CAPSULE PO SCH ×2 (10:37→21:19)
[2017-10-02] MEDS: PANTOPRAZOLE SODIUM 40 MG DR TABLET PO SCH (10:37)
[2017-10-02] MEDS: HEPARIN SODIUM,PORCINE 5,000 UNITS/ML VIAL SQ SCH ×2 (10:38→21:19)
[2017-10-02] MEDS: EPOETIN ALFA 10,000 UNITS/ML VIAL SQ SCH (10:40)
[2017-10-02 12:00] VITALS: BP 129/53
[2017-10-02] MEDS ORDERED: LIDOCAINE HCL/PF 1% 2 ML VIAL INJ ONE (12:00)
[2017-10-02] MEDS: IPRATROPIUM BROMIDE 0.5 MG/2.5 ML NEB SOLUTION NEB SCH ×4 (12:03→22:37)
[2017-10-02] MEDS: ALBUTEROL SULFATE 2.5 MG/0.5 ML NEB SOLUTION NEB SCH ×4 (12:04→22:36)
[2017-10-02 12:27] LABS: GLUCOSE,POINT OF CARE 135 MG/DL (70-110)
[2017-10-02] MEDS: ACETAMINOPHEN 325 MG TABLET PO PRN (13:59)
[2017-10-02 16:00] VITALS: BP 94/54
[2017-10-02 17:18] LABS: GLUCOSE,POINT OF CARE 123 MG/DL (70-110)
[2017-10-03] VITALS (7 sets, daily range): BP systolic 90–124; BP diastolic 44–70
[2017-10-03] MEDS: PIPERACILLIN SODIUM/TAZOBACTAM 2.25 GM in DEXTROSE 5%-WATER 50 ML IV SCH ×3 (00:16→16:18)
[2017-10-03] MEDS: MethylPREDNISolone SOD SUCC 125 MG/2 ML VIAL IVP SCH ×4 (00:16→18:16)
[2017-10-03 01:13] LABS: GLUCOSE,POINT OF CARE 127 MG/DL (70-110)
[2017-10-03] MEDS: IPRATROPIUM BROMIDE 0.5 MG/2.5 ML NEB SOLUTION NEB PRN (03:06)
[2017-10-03] MEDS: ALBUTEROL SULFATE 2.5 MG/0.5 ML NEB SOLUTION NEB SCH ×6 (03:06→23:03)
[2017-10-03] MEDS: ACETAMINOPHEN 325 MG TABLET PO PRN ×3 (04:43→18:49)
[2017-10-03 05:51] LABS: BASOPHILS % (AUTO) 0.1 % (0.0-2.0); EOSINOPHILS % (AUTO) 0 % (1.0-6.0); HEMATOCRIT 30.7 % (36-46); HEMOGLOBIN 9.6 g/dL (12.0-16.0); LYMPHOCYTES # (AUTO) 0.3 K/uL (1.0-4.8); LYMPHOCYTES % (AUTO) 4.7 % (22.0-44.0); MEAN CORPUSCULAR HEMOGLOBIN 30.2 pg (26.0-34.0); MEAN CORPUSCULAR HGB CONC 31.2 G/dL (31.0-37.0); MEAN CORPUSCULAR VOLUME 97 fL (80-100); MONOCYTES # (AUTO) 0.2 K/uL (0.1-1.0); NEUTROPHILS # (AUTO) 5.1 K/uL (1.8-7.7); PLATELET COUNT (AUTO) 319 K/uL (150-450); RED BLOOD CELL COUNT(AUTO) 3.18 MIL/uL (4.00-5.20); RED CELL DISTRIBUTION WIDTH 17.2 % (11.5-14.5)
[2017-10-03 05:55] LABS: NEUTROPHILS % (AUTO) 92.2 % (40.0-70.0)
[2017-10-03 06:22] LABS: CALCIUM, TOTAL 9.4 mg/dL (8.8-10.5); CREATININE 3.1 mg/dL (0.60-1.30); MAGNESIUM 1.6 mg/dL (1.80-2.40); PHOSPHORUS 2.9 mg/dL (2.5-4.9); VANCOMYCIN,RANDOM 21.9 mcg/mL (25.0-50.0)
[2017-10-03] MEDS: INSULIN LISPRO 100 UNITS/ML SQ PRN ×2 (06:46→17:20)
[2017-10-03] MEDS: IPRATROPIUM BROMIDE 0.5 MG/2.5 ML NEB SOLUTION NEB SCH ×5 (07:31→23:03)
[2017-10-03] MEDS ORDERED: SODIUM CHLORIDE 0.9% 250 ML IV ONE ×2 (08:04→13:38)
[2017-10-03 08:27] LABS: GLUCOSE,POINT OF CARE 155 MG/DL (70-110)
[2017-10-03] MEDS: DOCUSATE SODIUM 100 MG CAPSULE PO SCH ×2 (08:40→19:56)
[2017-10-03] MEDS: PANTOPRAZOLE SODIUM 40 MG DR TABLET PO SCH (08:41)
[2017-10-03] MEDS: HEPARIN SODIUM,PORCINE 5,000 UNITS/ML VIAL SQ SCH ×2 (08:41→19:56)
[2017-10-03] MEDS: LevETIRAcetam 500 MG TABLET PO SCH ×2 (08:41→19:56)
[2017-10-03 11:27] LABS: GLUCOSE,POINT OF CARE 127 MG/DL (70-110)
[2017-10-03 19:48] LABS: GLUCOMETER DEV NAME(LOC) 5N 2S; GLUCOSE,POINT OF CARE 199 MG/DL (70-110)
[2017-10-03] MEDS ORDERED: MAGNESIUM OXIDE 400 MG TABLET PO ONE (21:30)
[2017-10-04 00:18] VITALS: BP 98/53
[2017-10-04] MEDS: PIPERACILLIN SODIUM/TAZOBACTAM 2.25 GM in DEXTROSE 5%-WATER 50 ML IV SCH ×4 (01:00→23:45)
[2017-10-04] MEDS: MethylPREDNISolone SOD SUCC 125 MG/2 ML VIAL IVP SCH ×5 (01:03→23:45)
[2017-10-04] MEDS: IPRATROPIUM BROMIDE 0.5 MG/2.5 ML NEB SOLUTION NEB PRN (02:33)
[2017-10-04] MEDS: ALBUTEROL SULFATE 2.5 MG/0.5 ML NEB SOLUTION NEB SCH ×6 (02:33→22:56)
[2017-10-04 04:57] VITALS: BP 127/67
[2017-10-04] MEDS: INSULIN LISPRO 100 UNITS/ML SQ PRN ×3 (06:04→21:12)
[2017-10-04 06:09] LABS: BASOPHILS % (AUTO) 0.1 % (0.0-2.0); EOSINOPHILS % (AUTO) 0 % (1.0-6.0); HEMATOCRIT 33.1 % (36-46); HEMOGLOBIN 10.4 g/dL (12.0-16.0); LYMPHOCYTES # (AUTO) 0.3 K/uL (1.0-4.8); MEAN CORPUSCULAR HGB CONC 31.5 G/dL (31.0-37.0); MEAN CORPUSCULAR VOLUME 95 fL (80-100); MONOCYTES # (AUTO) 0.2 K/uL (0.1-1.0); MONOCYTES % (AUTO) 3.2 % (2.0-9.0); NEUTROPHILS # (AUTO) 5.2 K/uL (1.8-7.7); PLATELET COUNT (AUTO) 335 K/uL (150-450); RED BLOOD CELL COUNT(AUTO) 3.47 MIL/uL (4.00-5.20); RED CELL DISTRIBUTION WIDTH 17.3 % (11.5-14.5)
[2017-10-04 06:51] LABS: NEUTROPHILS % (AUTO) 91.7 % (40.0-70.0)
[2017-10-04 07:04] LABS: CALCIUM, TOTAL 9.2 mg/dL (8.8-10.5); CREATININE 4.78 mg/dL (0.60-1.30); MAGNESIUM 1.8 mg/dL (1.80-2.40); PHOSPHORUS 3.3 mg/dL (2.5-4.9); POTASSIUM 4.1 mmol/L (3.5-5.1)
[2017-10-04 07:27] VITALS: BP 117/68
[2017-10-04] MEDS: IPRATROPIUM BROMIDE 0.5 MG/2.5 ML NEB SOLUTION NEB SCH ×5 (07:32→22:56)
[2017-10-04] MEDS ORDERED: VANCOMYCIN HCL 1 GM/D5% WATER 200 ML IV ONE (10:00)
[2017-10-04] MEDS: DOCUSATE SODIUM 100 MG CAPSULE PO SCH ×2 (10:23→19:48)
[2017-10-04] MEDS: LevETIRAcetam 500 MG TABLET PO SCH ×2 (10:23→19:48)
[2017-10-04] MEDS: HEPARIN SODIUM,PORCINE 5,000 UNITS/ML VIAL SQ SCH ×2 (10:23→19:47)
[2017-10-04] MEDS: PANTOPRAZOLE SODIUM 40 MG DR TABLET PO SCH (10:23)
[2017-10-04 11:10] VITALS: BP 117/71
[2017-10-04] MEDS ORDERED: LIDOCAINE HCL/PF 1% 2 ML VIAL INJ ONE (12:00)
[2017-10-04] MEDS: ACETAMINOPHEN 325 MG TABLET PO PRN ×3 (13:22→23:44)
[2017-10-04 15:03] LABS: GLUCOMETER DEV NAME(LOC) 5N 2S; GLUCOSE,POINT OF CARE 171 MG/DL (70-110)
[2017-10-04 15:07] LABS: GLUCOMETER DEV NAME(LOC) 5S 2N; GLUCOSE,POINT OF CARE 163 MG/DL (70-110)
[2017-10-04 15:25] VITALS: BP 112/88
[2017-10-04] MEDS: OXYGEN THERAPY IH SCH (19:07)
[2017-10-04 19:16] VITALS: BP 100/61
[2017-10-04 19:27] LABS: GLUCOMETER DEV NAME(LOC) 5S 2N; GLUCOSE,POINT OF CARE 135 MG/DL (70-110)
[2017-10-04 19:27] LABS: GLUCOMETER DEV NAME(LOC) 5S 2N; GLUCOSE,POINT OF CARE 178 MG/DL (70-110)
[2017-10-05 00:37] VITALS: BP 127/60
[2017-10-05 00:38] LABS: GLUCOMETER DEV NAME(LOC) 5S 2N; GLUCOSE,POINT OF CARE 214 MG/DL (70-110)
[2017-10-05] MEDS: ALBUTEROL SULFATE 2.5 MG/0.5 ML NEB SOLUTION NEB SCH ×6 (02:56→22:51)
[2017-10-05] MEDS: IPRATROPIUM BROMIDE 0.5 MG/2.5 ML NEB SOLUTION NEB PRN (02:56)
[2017-10-05 04:28] VITALS: BP 97/58
[2017-10-05] MEDS: MethylPREDNISolone SOD SUCC 125 MG/2 ML VIAL IVP SCH ×3 (05:28→17:36)
[2017-10-05] MEDS: INSULIN LISPRO 100 UNITS/ML SQ PRN ×4 (05:29→21:08)
[2017-10-05 07:07] VITALS: BP 150/112
[2017-10-05 07:32] LABS: GLUCOMETER DEV NAME(LOC) 5N 2S; GLUCOSE,POINT OF CARE 198 MG/DL (70-110)
[2017-10-05] MEDS: OXYGEN THERAPY IH SCH ×2 (07:52→19:16)
[2017-10-05] MEDS: IPRATROPIUM BROMIDE 0.5 MG/2.5 ML NEB SOLUTION NEB SCH ×5 (07:52→22:51)
[2017-10-05] MEDS: PIPERACILLIN SODIUM/TAZOBACTAM 2.25 GM in DEXTROSE 5%-WATER 50 ML IV SCH ×2 (07:54→16:14)
[2017-10-05] MEDS: LevETIRAcetam 500 MG TABLET PO SCH ×2 (07:54→20:56)
[2017-10-05] MEDS: DOCUSATE SODIUM 100 MG CAPSULE PO SCH ×2 (07:54→20:56)
[2017-10-05] MEDS: PANTOPRAZOLE SODIUM 40 MG DR TABLET PO SCH (07:55)
[2017-10-05] MEDS: HEPARIN SODIUM,PORCINE 5,000 UNITS/ML VIAL SQ SCH ×2 (07:55→20:56)
[2017-10-05] MEDS: EPOETIN ALFA 10,000 UNITS/ML VIAL SQ SCH (09:46)
[2017-10-05] MEDS: ACETAMINOPHEN 325 MG TABLET PO PRN ×2 (10:47→20:57)
[2017-10-05 11:20] VITALS: BP 140/70
[2017-10-05 14:13] LABS: GLUCOMETER DEV NAME(LOC) 5S 2N; GLUCOSE,POINT OF CARE 229 MG/DL (70-110)
[2017-10-05 15:01] VITALS: BP 115/76
[2017-10-05 20:16] VITALS: BP 104/62
[2017-10-06] VITALS (7 sets, daily range): BP systolic 94–132; BP diastolic 51–77
[2017-10-06] MEDS: MethylPREDNISolone SOD SUCC 125 MG/2 ML VIAL IVP SCH (00:10)
[2017-10-06] MEDS: PIPERACILLIN SODIUM/TAZOBACTAM 2.25 GM in DEXTROSE 5%-WATER 50 ML IV SCH ×4 (00:10→23:42)
[2017-10-06 01:48] LABS: GLUCOMETER DEV NAME(LOC) 5S 2N; GLUCOSE,POINT OF CARE 179 MG/DL (70-110)
[2017-10-06] MEDS: IPRATROPIUM BROMIDE 0.5 MG/2.5 ML NEB SOLUTION NEB PRN (03:21)
[2017-10-06] MEDS: ALBUTEROL SULFATE 2.5 MG/0.5 ML NEB SOLUTION NEB SCH ×6 (03:21→22:58)
[2017-10-06] MEDS: INSULIN LISPRO 100 UNITS/ML SQ PRN ×3 (06:16→21:56)
[2017-10-06 07:03] LABS: GLUCOMETER DEV NAME(LOC) 5S 2N; GLUCOSE,POINT OF CARE 190 MG/DL (70-110)
[2017-10-06] MEDS: IPRATROPIUM BROMIDE 0.5 MG/2.5 ML NEB SOLUTION NEB SCH ×5 (08:13→22:58)
[2017-10-06] MEDS: OXYGEN THERAPY IH SCH ×2 (08:14→20:00)
[2017-10-06] MEDS: PANTOPRAZOLE SODIUM 40 MG DR TABLET PO SCH (08:15)
[2017-10-06] MEDS: DOCUSATE SODIUM 100 MG CAPSULE PO SCH ×2 (08:15→20:00)
[2017-10-06] MEDS: LevETIRAcetam 500 MG TABLET PO SCH ×2 (08:15→20:01)
[2017-10-06] MEDS: VITAMIN B COMP/VIT C/FOLIC ACID CAPSULE PO SCH (08:15)
[2017-10-06] MEDS: PredniSONE 20 MG TABLET PO SCH (08:15)
[2017-10-06] MEDS: HEPARIN SODIUM,PORCINE 5,000 UNITS/ML VIAL SQ SCH ×2 (08:15→20:01)
[2017-10-06] MEDS ORDERED: METOPROLOL TARTRATE 25 MG TABLET PO SCH (09:00)
[2017-10-06] MEDS: METOPROLOL TARTRATE 25 MG TABLET PO SCH ×2 (09:00→14:36)
[2017-10-06] MEDS ORDERED: AUD NEB (12:47)
[2017-10-06] MEDS ORDERED: IPRNEB IH (12:48)
[2017-10-06] MEDS ORDERED: ZOSY225FZ IV (12:49)
[2017-10-06] MEDS ORDERED: PRED10 PO (12:50)
[2017-10-06] MEDS ORDERED: PRED20 PO (12:50)
[2017-10-06] MEDS ORDERED: PRED5 PO (12:50)
[2017-10-06] MEDS ORDERED: BISA10S PR (12:51)
[2017-10-06] MEDS ORDERED: VANC1IV IV (12:53)
[2017-10-06] MEDS ORDERED: SODIUM CHLORIDE 0.9% 2,000 ML IV ONE (12:55)
[2017-10-06 13:38] LABS: GLUCOMETER DEV NAME(LOC) 5N 2S; GLUCOSE,POINT OF CARE 148 MG/DL (70-110)
[2017-10-06 14:23] LABS: GLUCOMETER DEV NAME(LOC) 5S 2N; GLUCOSE,POINT OF CARE 212 MG/DL (70-110)
[2017-10-06] MEDS ORDERED: LIDOCAINE HCL/PF 1% 2 ML VIAL ONE (14:47)
[2017-10-06] MEDS: ACETAMINOPHEN 325 MG TABLET PO PRN (20:01)
[2017-10-06] MEDS ORDERED: SODIUM CHLORIDE 0.9% 100 ML ONE (23:40)
[2017-10-07] MEDS: IPRATROPIUM BROMIDE 0.5 MG/2.5 ML NEB SOLUTION NEB PRN (02:49)
[2017-10-07] MEDS: ALBUTEROL SULFATE 2.5 MG/0.5 ML NEB SOLUTION NEB SCH ×6 (02:49→23:00)
[2017-10-07 03:22] VITALS: BP 95/58
[2017-10-07] MEDS: INSULIN LISPRO 100 UNITS/ML SQ PRN ×4 (06:18→20:44)
[2017-10-07] MEDS: IPRATROPIUM BROMIDE 0.5 MG/2.5 ML NEB SOLUTION NEB SCH ×5 (07:17→23:01)
[2017-10-07 07:28] VITALS: BP 105/63
[2017-10-07] MEDS: PIPERACILLIN SODIUM/TAZOBACTAM 2.25 GM in DEXTROSE 5%-WATER 50 ML IV SCH ×3 (08:00→23:33)
[2017-10-07] MEDS: OXYGEN THERAPY IH SCH ×2 (08:01→20:32)
[2017-10-07] MEDS: DOCUSATE SODIUM 100 MG CAPSULE PO SCH ×2 (08:07→20:46)
[2017-10-07] MEDS: EPOETIN ALFA 10,000 UNITS/ML VIAL SQ SCH (08:07)
[2017-10-07] MEDS: HEPARIN SODIUM,PORCINE 5,000 UNITS/ML VIAL SQ SCH ×2 (08:07→20:33)
[2017-10-07] MEDS: METOPROLOL TARTRATE 25 MG TABLET PO SCH ×2 (08:08→20:32)
[2017-10-07] MEDS: LevETIRAcetam 500 MG TABLET PO SCH ×2 (08:08→20:32)
[2017-10-07] MEDS: PANTOPRAZOLE SODIUM 40 MG DR TABLET PO SCH (08:08)
[2017-10-07] MEDS: PredniSONE 20 MG TABLET PO SCH (08:08)
[2017-10-07] MEDS: VITAMIN B COMP/VIT C/FOLIC ACID CAPSULE PO SCH (08:08)
[2017-10-07 10:57] LABS: GLUCOMETER DEV NAME(LOC) 5N 1P; GLUCOSE,POINT OF CARE 144 MG/DL (70-110)
[2017-10-07 11:15] VITALS: BP 97/56
[2017-10-07 11:33] LABS: GLUCOMETER DEV NAME(LOC) 5S 2N; GLUCOSE,POINT OF CARE 101 MG/DL (70-110)
[2017-10-07 11:38] LABS: GLUCOMETER DEV NAME(LOC) 5S 2N; GLUCOSE,POINT OF CARE 196 MG/DL (70-110)
[2017-10-07 12:28] LABS: GLUCOMETER DEV NAME(LOC) 5S 2N; GLUCOSE,POINT OF CARE 157 MG/DL (70-110)
[2017-10-07 15:49] VITALS: BP 130/83
[2017-10-07] MEDS: ACETAMINOPHEN 325 MG TABLET PO PRN (16:33)
[2017-10-07 19:40] VITALS: BP 115/79
[2017-10-07 23:39] VITALS: BP 116/89
[2017-10-08] MEDS: ALBUTEROL SULFATE 2.5 MG/0.5 ML NEB SOLUTION NEB SCH ×6 (03:07→23:15)
[2017-10-08] MEDS: IPRATROPIUM BROMIDE 0.5 MG/2.5 ML NEB SOLUTION NEB PRN (03:07)
[2017-10-08 04:13] VITALS: BP 91/58
[2017-10-08] MEDS: IPRATROPIUM BROMIDE 0.5 MG/2.5 ML NEB SOLUTION NEB SCH ×5 (07:00→23:15)
[2017-10-08 07:13] VITALS: BP 98/53
[2017-10-08 07:27] LABS: GLUCOMETER DEV NAME(LOC) 5N 2S; GLUCOSE,POINT OF CARE 127 MG/DL (70-110)
[2017-10-08 07:27] LABS: GLUCOMETER DEV NAME(LOC) 5N 1P; GLUCOSE,POINT OF CARE 156 MG/DL (70-110)
[2017-10-08 07:27] LABS: GLUCOMETER DEV NAME(LOC) 5N 1P; GLUCOSE,POINT OF CARE 318 MG/DL (70-110)
[2017-10-08] MEDS: METOPROLOL TARTRATE 25 MG TABLET PO SCH ×2 (09:00→21:00)
[2017-10-08] MEDS: DOCUSATE SODIUM 100 MG CAPSULE PO SCH ×2 (09:00→21:00)
[2017-10-08] MEDS: PredniSONE 20 MG TABLET PO SCH (09:07)
[2017-10-08] MEDS: VITAMIN B COMP/VIT C/FOLIC ACID CAPSULE PO SCH (09:07)
[2017-10-08] MEDS: LevETIRAcetam 500 MG TABLET PO SCH ×2 (09:07→22:54)
[2017-10-08] MEDS: PANTOPRAZOLE SODIUM 40 MG DR TABLET PO SCH (09:09)
[2017-10-08] MEDS: HEPARIN SODIUM,PORCINE 5,000 UNITS/ML VIAL SQ SCH ×2 (09:11→22:54)
[2017-10-08] MEDS: OXYGEN THERAPY IH SCH ×2 (09:16→22:53)
[2017-10-08 09:17] LABS: ALBUMIN 2.6 g/dL (3.4-5.0); BILIRUBIN,TOTAL 0.3 mg/dL (0.1-1.0); CALCIUM, TOTAL 8.3 mg/dL (8.8-10.5); CREATININE 6.3 mg/dL (0.60-1.30); MAGNESIUM 1.6 mg/dL (1.80-2.40); POTASSIUM 3.8 mmol/L (3.5-5.1); TOTAL PROTEIN, SERUM 6.3 g/dL (6.4-8.2); VANCOMYCIN,RANDOM 21.4 mcg/mL (25.0-50.0)
[2017-10-08] MEDS: ACETAMINOPHEN 325 MG TABLET PO PRN ×3 (10:39→20:03)
[2017-10-08 11:12] VITALS: BP 91/66
[2017-10-08 12:32] LABS: GLUCOMETER DEV NAME(LOC) 5N 1P; GLUCOSE,POINT OF CARE 117 MG/DL (70-110)
[2017-10-08] MEDS ORDERED: DIGOXIN 250 MCG/ML 2 ML AMP IVP ONE (13:00)
[2017-10-08] MEDS: PIPERACILLIN SODIUM/TAZOBACTAM 2.25 GM in DEXTROSE 5%-WATER 50 ML IV SCH ×2 (13:32→22:52)
[2017-10-08 13:56] LABS: MAGNESIUM 1.4 mg/dL (1.80-2.40); PHOSPHORUS 1.8 mg/dL (2.5-4.9)
[2017-10-08] MEDS ORDERED: MAGNESIUM SULFATE 3 GM in DEXTROSE 5%-WATER 100 ML IV ONE (14:15)
[2017-10-08] MEDS ORDERED: SODIUM PHOS,M-BASIC-D-BASIC 20 MEQ in DEXTROSE 5%-WATER 100 ML IV ONE (14:15)
[2017-10-08 15:09] VITALS: BP 100/59
[2017-10-08] MEDS ORDERED: LOPERAMIDE HCL 2 MG CAPSULE PO PRN (16:15)
[2017-10-08] MEDS ORDERED: MAGNESIUM SULFATE 2 GM in DEXTROSE 5%-WATER 50 ML IV ONE (16:30)
[2017-10-08] MEDS: INSULIN LISPRO 100 UNITS/ML SQ PRN ×2 (18:01→23:08)
[2017-10-08] MEDS ORDERED: AMIODARONE HCL 360 MG in DEXTROSE 5%-WATER 242.8 ML IV ONE (19:00)
[2017-10-08 20:23] VITALS: BP 103/71
[2017-10-08 20:27] LABS: GLUCOMETER DEV NAME(LOC) 5S 1M; GLUCOSE,POINT OF CARE 197 MG/DL (70-110)
[2017-10-08 23:00] VITALS: BP 94/54
[2017-10-09 00:36] VITALS: BP 92/58
[2017-10-09] MEDS ORDERED: AMIODARONE HCL 540 MG in DEXTROSE 5%-WATER 239.2 ML IV ONE (01:00)
[2017-10-09] MEDS: ACETAMINOPHEN 325 MG TABLET PO PRN ×3 (02:24→21:26)
[2017-10-09 05:38] VITALS: BP 116/62
[2017-10-09 06:03] LABS: BASOPHILS % (AUTO) 0.2 % (0.0-2.0); EOSINOPHILS % (AUTO) 0.1 % (1.0-6.0); HEMATOCRIT 35.2 % (36-46); HEMOGLOBIN 11.1 g/dL (12.0-16.0); LYMPHOCYTES # (AUTO) 1.3 K/uL (1.0-4.8); LYMPHOCYTES % (AUTO) 10.1 % (22.0-44.0); MEAN CORPUSCULAR HEMOGLOBIN 29.5 pg (26.0-34.0); MEAN CORPUSCULAR HGB CONC 31.6 G/dL (31.0-37.0); MEAN CORPUSCULAR VOLUME 93 fL (80-100); NEUTROPHILS # (AUTO) 10.6 K/uL (1.8-7.7); NEUTROPHILS % (AUTO) 81.6 % (40.0-70.0); PLATELET COUNT (AUTO) 223 K/uL (150-450); RED BLOOD CELL COUNT(AUTO) 3.77 MIL/uL (4.00-5.20); RED CELL DISTRIBUTION WIDTH 16.9 % (11.5-14.5)
[2017-10-09 06:13] LABS: CALCIUM, TOTAL 7.9 mg/dL (8.8-10.5); CREATININE 3.79 mg/dL (0.60-1.30); MAGNESIUM 2.1 mg/dL (1.80-2.40); POTASSIUM 3.7 mmol/L (3.5-5.1)
[2017-10-09] MEDS: ALBUTEROL SULFATE 2.5 MG/0.5 ML NEB SOLUTION NEB SCH ×5 (07:23→22:58)
[2017-10-09] MEDS: IPRATROPIUM BROMIDE 0.5 MG/2.5 ML NEB SOLUTION NEB SCH ×5 (07:23→22:58)
[2017-10-09] MEDS ORDERED: DIGOXIN 250 MCG/ML 2 ML AMP IVP ONE (07:45)
[2017-10-09 07:55] VITALS: BP 158/74
[2017-10-09] MEDS ORDERED: VANCOMYCIN HCL 1 GM/D5% WATER 200 ML IV ONE (08:00)
[2017-10-09] MEDS: LevETIRAcetam 500 MG TABLET PO SCH ×2 (08:21→21:26)
[2017-10-09] MEDS: PIPERACILLIN SODIUM/TAZOBACTAM 2.25 GM in DEXTROSE 5%-WATER 50 ML IV SCH ×4 (08:21→15:57)
[2017-10-09] MEDS: OXYGEN THERAPY IH SCH ×2 (08:21→19:07)
[2017-10-09] MEDS: VITAMIN B COMP/VIT C/FOLIC ACID CAPSULE PO SCH (08:21)
[2017-10-09] MEDS: EPOETIN ALFA 10,000 UNITS/ML VIAL SQ SCH (08:22)
[2017-10-09] MEDS: HEPARIN SODIUM,PORCINE 5,000 UNITS/ML VIAL SQ SCH ×2 (08:22→21:28)
[2017-10-09] MEDS: DOCUSATE SODIUM 100 MG CAPSULE PO SCH ×2 (08:22→21:26)
[2017-10-09] MEDS: PANTOPRAZOLE SODIUM 40 MG DR TABLET PO SCH (08:22)
[2017-10-09] MEDS: METOPROLOL TARTRATE 25 MG TABLET PO SCH ×2 (08:22→21:27)
[2017-10-09] MEDS: PredniSONE 20 MG TABLET PO SCH (08:26)
[2017-10-09] MEDS ORDERED: APIXABAN 2.5 MG TABLET PO SCH (09:00)
[2017-10-09 11:46] VITALS: BP 103/43
[2017-10-09] MEDS: INSULIN LISPRO 100 UNITS/ML SQ PRN ×3 (12:14→21:33)
[2017-10-09 16:05] VITALS: BP 115/59
[2017-10-09] MEDS ORDERED: AMIODARONE HCL 750 MG in DEXTROSE 5%-WATER 485 ML IV SCH (19:00)
[2017-10-09 19:51] VITALS: BP 102/51
[2017-10-09 22:57] LABS: GLUCOMETER DEV NAME(LOC) 5S 1M; GLUCOSE,POINT OF CARE 183 MG/DL (70-110)
[2017-10-09 22:57] LABS: GLUCOMETER DEV NAME(LOC) 5S 2P; GLUCOSE,POINT OF CARE 80 MG/DL (70-110)
[2017-10-09 22:57] LABS: GLUCOMETER DEV NAME(LOC) 5S 2P; GLUCOSE,POINT OF CARE 254 MG/DL (70-110)
[2017-10-09 22:57] LABS: GLUCOMETER DEV NAME(LOC) 5S 2P; GLUCOSE,POINT OF CARE 204 MG/DL (70-110)
[2017-10-09 22:57] LABS: GLUCOMETER DEV NAME(LOC) 5S 1M; GLUCOSE,POINT OF CARE 253 MG/DL (70-110)
[2017-10-10] VITALS (7 sets, daily range): BP systolic 91–114; BP diastolic 49–63
[2017-10-10] MEDS: PIPERACILLIN SODIUM/TAZOBACTAM 2.25 GM in DEXTROSE 5%-WATER 50 ML IV SCH ×4 (00:29→23:27)
[2017-10-10] MEDS: ACETAMINOPHEN 325 MG TABLET PO PRN ×5 (02:01→23:26)
[2017-10-10] MEDS: IPRATROPIUM BROMIDE 0.5 MG/2.5 ML NEB SOLUTION NEB PRN (03:06)
[2017-10-10] MEDS: ALBUTEROL SULFATE 2.5 MG/0.5 ML NEB SOLUTION NEB SCH ×6 (03:06→23:07)
[2017-10-10 06:38] LABS: BASOPHILS % (AUTO) 0.6 % (0.0-2.0); EOSINOPHILS % (AUTO) 0.5 % (1.0-6.0); HEMATOCRIT 34.2 % (36-46); HEMOGLOBIN 10.9 g/dL (12.0-16.0); LYMPHOCYTES # (AUTO) 1.1 K/uL (1.0-4.8); LYMPHOCYTES % (AUTO) 8.4 % (22.0-44.0); MEAN CORPUSCULAR HEMOGLOBIN 29.6 pg (26.0-34.0); MEAN CORPUSCULAR VOLUME 93 fL (80-100); MONOCYTES # (AUTO) 0.9 K/uL (0.1-1.0); MONOCYTES % (AUTO) 7.1 % (2.0-9.0); NEUTROPHILS # (AUTO) 10.6 K/uL (1.8-7.7); NEUTROPHILS % (AUTO) 83.4 % (40.0-70.0); PLATELET COUNT (AUTO) 225 K/uL (150-450); RED BLOOD CELL COUNT(AUTO) 3.69 MIL/uL (4.00-5.20); RED CELL DISTRIBUTION WIDTH 16.9 % (11.5-14.5)
[2017-10-10 07:25] LABS: ALBUMIN 2.5 g/dL (3.4-5.0); BILIRUBIN,TOTAL 0.4 mg/dL (0.1-1.0); CALCIUM, TOTAL 7.5 mg/dL (8.8-10.5); CREATININE 6.16 mg/dL (0.60-1.30); MAGNESIUM 2.1 mg/dL (1.80-2.40); PHOSPHORUS 4.6 mg/dL (2.5-4.9); POTASSIUM 3.7 mmol/L (3.5-5.1)
[2017-10-10 07:37] LABS: GLUCOMETER DEV NAME(LOC) 5S 2P; GLUCOSE,POINT OF CARE 128 MG/DL (70-110)
[2017-10-10] MEDS: IPRATROPIUM BROMIDE 0.5 MG/2.5 ML NEB SOLUTION NEB SCH ×5 (08:11→23:07)
[2017-10-10] MEDS: HEPARIN SODIUM,PORCINE 5,000 UNITS/ML VIAL SQ SCH ×2 (08:34→20:49)
[2017-10-10] MEDS: VITAMIN B COMP/VIT C/FOLIC ACID CAPSULE PO SCH (08:34)
[2017-10-10] MEDS: PredniSONE 20 MG TABLET PO SCH (08:34)
[2017-10-10] MEDS: PANTOPRAZOLE SODIUM 40 MG DR TABLET PO SCH (08:34)
[2017-10-10] MEDS: LevETIRAcetam 500 MG TABLET PO SCH ×2 (08:34→20:49)
[2017-10-10] MEDS: METOPROLOL TARTRATE 25 MG TABLET PO SCH ×2 (08:41→20:50)
[2017-10-10] MEDS: OXYGEN THERAPY IH SCH ×2 (08:43→19:55)
[2017-10-10] MEDS: DOCUSATE SODIUM 100 MG CAPSULE PO SCH ×2 (09:00→20:49)
[2017-10-10] MEDS: INSULIN LISPRO 100 UNITS/ML SQ PRN ×3 (11:41→20:52)
[2017-10-10 22:32] LABS: GLUCOMETER DEV NAME(LOC) 5S 2P; GLUCOSE,POINT OF CARE 232 MG/DL (70-110)
[2017-10-10 22:32] LABS: GLUCOMETER DEV NAME(LOC) 5N 2S; GLUCOSE,POINT OF CARE 198 MG/DL (70-110)
[2017-10-10 22:32] LABS: GLUCOMETER DEV NAME(LOC) 5S 2P; GLUCOSE,POINT OF CARE 142 MG/DL (70-110)
[2017-10-10] MEDS ORDERED: SODIUM CHLORIDE 0.9% 250 ML IV ONE (23:28)
[2017-10-11] MEDS: ALBUTEROL SULFATE 2.5 MG/0.5 ML NEB SOLUTION NEB SCH ×6 (03:10→23:37)
[2017-10-11] MEDS: IPRATROPIUM BROMIDE 0.5 MG/2.5 ML NEB SOLUTION NEB PRN (03:10)
[2017-10-11 05:08] VITALS: BP 99/59
[2017-10-11] MEDS: INSULIN LISPRO 100 UNITS/ML SQ PRN ×4 (05:56→21:02)
[2017-10-11 07:19] LABS: BASOPHILS % (AUTO) 0.6 % (0.0-2.0); EOSINOPHILS % (AUTO) 0.2 % (1.0-6.0); HEMATOCRIT 33.4 % (36-46); HEMOGLOBIN 10.7 g/dL (12.0-16.0); LYMPHOCYTES # (AUTO) 1.1 K/uL (1.0-4.8); LYMPHOCYTES % (AUTO) 9.1 % (22.0-44.0); MEAN CORPUSCULAR HEMOGLOBIN 29.6 pg (26.0-34.0); MEAN CORPUSCULAR HGB CONC 31.9 G/dL (31.0-37.0); MEAN CORPUSCULAR VOLUME 93 fL (80-100); MONOCYTES # (AUTO) 0.6 K/uL (0.1-1.0); MONOCYTES % (AUTO) 5.4 % (2.0-9.0); NEUTROPHILS # (AUTO) 9.9 K/uL (1.8-7.7); NEUTROPHILS % (AUTO) 84.7 % (40.0-70.0); PLATELET COUNT (AUTO) 201 K/uL (150-450); RED CELL DISTRIBUTION WIDTH 16.6 % (11.5-14.5)
[2017-10-11] MEDS: IPRATROPIUM BROMIDE 0.5 MG/2.5 ML NEB SOLUTION NEB SCH ×5 (07:51→23:37)
[2017-10-11 07:52] LABS: ALBUMIN 2.5 g/dL (3.4-5.0); BILIRUBIN,TOTAL 0.4 mg/dL (0.1-1.0); CALCIUM, TOTAL 7.3 mg/dL (8.8-10.5); CREATININE 7.66 mg/dL (0.60-1.30); MAGNESIUM 2.2 mg/dL (1.80-2.40); POTASSIUM 3.7 mmol/L (3.5-5.1); TOTAL PROTEIN, SERUM 5.8 g/dL (6.4-8.2)
[2017-10-11 08:05] VITALS: BP 97/49
[2017-10-11] MEDS ORDERED: SODIUM CHLORIDE 0.9% 100 ML ONE (08:44)
[2017-10-11] MEDS: METOPROLOL TARTRATE 25 MG TABLET PO SCH ×2 (09:00→21:00)
[2017-10-11] MEDS: DOCUSATE SODIUM 100 MG CAPSULE PO SCH ×2 (09:00→21:00)
[2017-10-11] MEDS: LevETIRAcetam 500 MG TABLET PO SCH ×2 (09:15→21:00)
[2017-10-11] MEDS: OXYGEN THERAPY IH SCH ×2 (09:15→19:24)
[2017-10-11] MEDS: PANTOPRAZOLE SODIUM 40 MG DR TABLET PO SCH (09:16)
[2017-10-11] MEDS: VITAMIN B COMP/VIT C/FOLIC ACID CAPSULE PO SCH (09:17)
[2017-10-11] MEDS: PredniSONE 20 MG TABLET PO SCH (09:17)
[2017-10-11] MEDS: HEPARIN SODIUM,PORCINE 5,000 UNITS/ML VIAL SQ SCH (09:19)
[2017-10-11] MEDS: ACETAMINOPHEN 325 MG TABLET PO PRN ×4 (09:24→23:38)
[2017-10-11 11:46] VITALS: BP 103/67
[2017-10-11] MEDS: PIPERACILLIN SODIUM/TAZOBACTAM 2.25 GM in DEXTROSE 5%-WATER 50 ML IV SCH ×2 (16:00→23:38)
[2017-10-11 16:43] VITALS: BP 104/57
[2017-10-11] MEDS ORDERED: LIDOCAINE HCL/PF 1% 2 ML VIAL IM ONE (18:49)
[2017-10-11] MEDS ORDERED: DiphenhydrAMINE HCL 50 MG/ML VIAL IVP ONE (18:49)
[2017-10-11 20:08] VITALS: BP 113/51
[2017-10-11] MEDS: APIXABAN 2.5 MG TABLET PO SCH (21:00)
[2017-10-11 21:48] LABS: GLUCOMETER DEV NAME(LOC) 5S 1M; GLUCOSE,POINT OF CARE 159 MG/DL (70-110)
[2017-10-11 21:48] LABS: GLUCOMETER DEV NAME(LOC) 5S 2P; GLUCOSE,POINT OF CARE 180 MG/DL (70-110)
[2017-10-11 21:48] LABS: GLUCOMETER DEV NAME(LOC) 5S 2P; GLUCOSE,POINT OF CARE 208 MG/DL (70-110)
[2017-10-11 23:37] VITALS: BP 100/63
[2017-10-12] MEDS: IPRATROPIUM BROMIDE 0.5 MG/2.5 ML NEB SOLUTION NEB PRN (02:34)
[2017-10-12] MEDS: ALBUTEROL SULFATE 2.5 MG/0.5 ML NEB SOLUTION NEB SCH ×5 (02:34→19:00)
[2017-10-12 06:23] VITALS: BP 102/52
[2017-10-12 07:18] LABS: GLUCOMETER DEV NAME(LOC) 5S 2P; GLUCOSE,POINT OF CARE 87 MG/DL (70-110)
[2017-10-12] MEDS: IPRATROPIUM BROMIDE 0.5 MG/2.5 ML NEB SOLUTION NEB SCH ×4 (08:03→19:00)
[2017-10-12 08:18] VITALS: BP 119/85
[2017-10-12] MEDS: VITAMIN B COMP/VIT C/FOLIC ACID CAPSULE PO SCH (08:55)
[2017-10-12] MEDS: PIPERACILLIN SODIUM/TAZOBACTAM 2.25 GM in DEXTROSE 5%-WATER 50 ML IV SCH ×2 (08:55→16:05)
[2017-10-12] MEDS: DOCUSATE SODIUM 100 MG CAPSULE PO SCH (08:55)
[2017-10-12] MEDS: PANTOPRAZOLE SODIUM 40 MG DR TABLET PO SCH (08:56)
[2017-10-12] MEDS: METOPROLOL TARTRATE 25 MG TABLET PO SCH (08:56)
[2017-10-12] MEDS: APIXABAN 2.5 MG TABLET PO SCH (08:56)
[2017-10-12] MEDS: PredniSONE 20 MG TABLET PO SCH (08:56)
[2017-10-12] MEDS: LevETIRAcetam 500 MG TABLET PO SCH (08:56)
[2017-10-12] MEDS: EPOETIN ALFA 10,000 UNITS/ML VIAL SQ SCH (08:57)
[2017-10-12] MEDS: ACETAMINOPHEN 325 MG TABLET PO PRN ×2 (09:01→16:04)
[2017-10-12 11:32] VITALS: BP 139/90
[2017-10-12 15:27] VITALS: BP 109/59
[2017-10-12] MEDS ORDERED: LEVO500 PO (15:31)
[2017-10-12] MEDS ORDERED: CLIN600P10 IV (15:31)
[2017-10-12 19:04] LABS: GLUCOMETER DEV NAME(LOC) 5S 2P; GLUCOSE,POINT OF CARE 127 MG/DL (70-110)
[2017-10-12 19:04] LABS: GLUCOMETER DEV NAME(LOC) 5S 2P; GLUCOSE,POINT OF CARE 248 MG/DL (70-110)
== END 2017-10-12 18:50 | DRG 871 ==
LOC: EMS 12:15 → ICU 14:41 → 5N 10-03 13:10 → 5S 10-08 15:50 → 5N 10-11 18:55
PROVIDERS: ADMIT Internal Medicine; ATTEND Internal Medicine
PROC: 5A09357 Assistance with Respiratory Ventilation, Less than 24 Consecutive Hours, Continuous Positive Airway Pressure (ICD-10-PCS; principal; 2017-10-01)
PROC: 5A1D70Z Performance of Urinary Filtration, Intermittent, Less than 6 Hours Per Day (ICD-10-PCS; 2017-10-01)
PROC: 5A09357 Assistance with Respiratory Ventilation, Less than 24 Consecutive Hours, Continuous Positive Airway Pressure (ICD-10-PCS; 2017-10-02)
PROC: 5A1D70Z Performance of Urinary Filtration, Intermittent, Less than 6 Hours Per Day (ICD-10-PCS; 2017-10-02)
PROC: 5A1D70Z Performance of Urinary Filtration, Intermittent, Less than 6 Hours Per Day (ICD-10-PCS; 2017-10-04)
PROC: 5A1D70Z Performance of Urinary Filtration, Intermittent, Less than 6 Hours Per Day (ICD-10-PCS; 2017-10-06)
PROC: 5A1D70Z Performance of Urinary Filtration, Intermittent, Less than 6 Hours Per Day (ICD-10-PCS; 2017-10-08)
PROC: 5A1D70Z Performance of Urinary Filtration, Intermittent, Less than 6 Hours Per Day (ICD-10-PCS; 2017-10-11)
DX: A41.9 Sepsis, unspecified organism (principal); J96.01 Acute respiratory failure with hypoxia; I13.2 Hypertensive heart and chronic kidney disease with heart failure and with stage 5 chronic kidney disease, or end stage renal disease; G92 Toxic encephalopathy; J96.02 Acute respiratory failure with hypercapnia; E87.2 Acidosis; E11.22 Type 2 diabetes mellitus with diabetic chronic kidney disease; I50.9 Heart failure, unspecified; J18.9 Pneumonia, unspecified organism; N18.6 End stage renal disease; I48.0 Paroxysmal atrial fibrillation; J44.0 Chronic obstructive pulmonary disease with (acute) lower respiratory infection; J44.1 Chronic obstructive pulmonary disease with (acute) exacerbation; D64.9 Anemia, unspecified; E78.00 Pure hypercholesterolemia, unspecified; E78.5 Hyperlipidemia, unspecified; K21.9 Gastro-esophageal reflux disease without esophagitis; E83.52 Hypercalcemia; G40.909 Epilepsy, unspecified, not intractable, without status epilepticus; F17.200 Nicotine dependence, unspecified, uncomplicated; Z99.2 Dependence on renal dialysis; Z88.1 Allergy status to other antibiotic agents; Z88.8 Allergy status to other drugs, medicaments and biological substances; Z79.899 Other long term (current) drug therapy; Z86.73 Personal history of transient ischemic attack (TIA), and cerebral infarction without residual deficits; Z82.49 Family history of ischemic heart disease and other diseases of the circulatory system; Z83.3 Family history of diabetes mellitus
CPT/HCPCS: 71250; 82805; 83036; 83540; 83550; 83605; 83735; 83970; 84100; 84145; 87040; 87081; 87340; 90935; 93005; 94640; 94660; 96365; 97110; 97163; 97167; 97530; 97535; 99291; J0282; J0713; J0885; J1160; J1200; J1644; J2150; J2543; J2930; J3370; J3475; J3490; J7030; J7040; J7050; J7060; P9047

== ENCOUNTER 2017-10-29 16:48 | Emergency (ER) | payer OTHER ==
[~2017-10-29] VITALS: Ht 165.1 cm; Wt 73.6 kg
[~2017-10-29 16:48] MED LIST changes: -ALBU8HFA IH; -ALBUMIN HUMAN 25%-12.5GM/50ML IV BOTTLE IV ONE; +AMIO200T44 PO; +APIX5TAB PO; +AUD NEB; +BISA10S PR; +CITA10TA68 PO; +CLIN600P10 IV; +IPRNEB IH; +LEVO500 PO; -LIDOCAINE HCL/PF 1% 2 ML VIAL INJ ONE; -MANNITOL 25%-12.5 GM/50 ML VIAL IVP ONE; +METO25 PO; +PANT40TA25 PO; +PRED10 PO; +PRED20 PO; +PRED5 PO; +ZALE10CA26 PO
[2017-10-29] MEDS ORDERED: EPOE20002 SQ (17:07)
[2017-10-29] MEDS ORDERED: TRAM50TA4 PO (17:07)
[2017-10-29] MEDS ORDERED: LOSA50TA37 PO (17:07)
[2017-10-29] MEDS ORDERED: ASPI-1182 PO (17:07)
[2017-10-29] MEDS ORDERED: DOXE4VIA IV (17:07)
[2017-10-29 17:44] LABS: BASOPHILS % (AUTO) 0.4 % (0.0-2.0); EOSINOPHILS % (AUTO) 4.5 % (1.0-6.0); HEMATOCRIT 32.7 % (36-46); HEMOGLOBIN 10.1 g/dL (12.0-16.0); LYMPHOCYTES # (AUTO) 1.1 K/uL (1.0-4.8); MEAN CORPUSCULAR HEMOGLOBIN 30.1 pg (26.0-34.0); MEAN CORPUSCULAR HGB CONC 30.9 G/dL (31.0-37.0); MEAN CORPUSCULAR VOLUME 97 fL (80-100); MONOCYTES # (AUTO) 0.6 K/uL (0.1-1.0); MONOCYTES % (AUTO) 11.5 % (2.0-9.0); NEUTROPHILS % (AUTO) 60.6 % (40.0-70.0); PLATELET COUNT (AUTO) 167 K/uL (150-450); RED BLOOD CELL COUNT(AUTO) 3.36 MIL/uL (4.00-5.20); RED CELL DISTRIBUTION WIDTH 19.7 % (11.5-14.5)
[2017-10-29 17:54] LABS: CALCIUM, TOTAL 9.7 mg/dL (8.8-10.5); CREATININE 5.15 mg/dL (0.60-1.30); POTASSIUM 4.6 mmol/L (3.5-5.1)
[2017-10-29 17:56] LABS: INR 0.9 (0.9-1.1); PROTHROMBIN TIME 9.8 SEC (9.4-11.6)
[2017-10-29 18:00] LABS: BILIRUBIN,TOTAL 0.4 mg/dL (0.1-1.0); TOTAL PROTEIN, SERUM 6.2 g/dL (6.4-8.2)
[2017-10-29 21:32] VITALS: BP 118/52
== END 2017-10-29 22:06 | disposition short-term general hospital (02) ==
LOC: EMS 16:49
DX: I48.91 Unspecified atrial fibrillation (principal); I13.2 Hypertensive heart and chronic kidney disease with heart failure and with stage 5 chronic kidney disease, or end stage renal disease; E11.22 Type 2 diabetes mellitus with diabetic chronic kidney disease; N18.6 End stage renal disease; I50.9 Heart failure, unspecified; G40.909 Epilepsy, unspecified, not intractable, without status epilepticus; R55 Syncope and collapse; K21.9 Gastro-esophageal reflux disease without esophagitis; E78.00 Pure hypercholesterolemia, unspecified; J44.9 Chronic obstructive pulmonary disease, unspecified; Z99.2 Dependence on renal dialysis; Z87.891 Personal history of nicotine dependence; Z86.73 Personal history of transient ischemic attack (TIA), and cerebral infarction without residual deficits; Z88.5 Allergy status to narcotic agent; Z88.0 Allergy status to penicillin; Z79.82 Long term (current) use of aspirin
CPT/HCPCS: 70450; 93005; 99291

== ENCOUNTER 2017-11-24 12:06 | Emergency (ER) | payer OTHER, MEDICAID ==
[~2017-11-24] VITALS: Ht 165.1 cm; Wt 75.0 kg
[~2017-11-24 12:06] MED LIST changes: -ACET-2902 PO; -AMIO200T44 PO; +ASPI-1182 PO; -B CO1CAP4 PO; -BISA10S PR; -CITA10TA68 PO; -CLIN600P10 IV; +DOXE4VIA IV; +EPOE20002 SQ; -IPRNEB IH; -LEVO500 PO; +LOSA50TA37 PO; -METO25 PO; -PANT40TA25 PO; -PRED10 PO; -PRED20 PO; -PRED5 PO; +TRAM50TA4 PO; -ZALE10CA26 PO
[2017-11-24 12:28] LABS: GLUCOSE,POINT OF CARE 96 MG/DL (70-110)
[2017-11-24] MEDS ORDERED: ONDANSETRON HCL 4 MG/2 ML VIAL IVP ONE (15:15)
[2017-11-24] MEDS ORDERED: FentaNYL CITRATE-PF 100 MCG/2 ML VIAL IVP ONE (15:15)
[2017-11-24 15:35] LABS: BASOPHILS % (AUTO) 1.1 % (0.0-2.0); EOSINOPHILS % (AUTO) 2.5 % (1.0-6.0); HEMATOCRIT 37.9 % (36-46); HEMOGLOBIN 12.2 g/dL (12.0-16.0); LYMPHOCYTES # (AUTO) 1.5 K/uL (1.0-4.8); LYMPHOCYTES % (AUTO) 22.2 % (22.0-44.0); MEAN CORPUSCULAR HEMOGLOBIN 30.1 pg (26.0-34.0); MEAN CORPUSCULAR HGB CONC 32.1 G/dL (31.0-37.0); MEAN CORPUSCULAR VOLUME 94 fL (80-100); MONOCYTES # (AUTO) 0.5 K/uL (0.1-1.0); MONOCYTES % (AUTO) 7.6 % (2.0-9.0); NEUTROPHILS # (AUTO) 4.4 K/uL (1.8-7.7); NEUTROPHILS % (AUTO) 66.6 % (40.0-70.0); PLATELET COUNT (AUTO) 258 K/uL (150-450); RED BLOOD CELL COUNT(AUTO) 4.05 MIL/uL (4.00-5.20); RED CELL DISTRIBUTION WIDTH 17.1 % (11.5-14.5)
[2017-11-24 16:09] LABS: CALCIUM, TOTAL 11.4 mg/dL (8.8-10.5); CREATININE 6.44 mg/dL (0.60-1.30); POTASSIUM 4.7 mmol/L (3.5-5.1)
[2017-11-24 16:14] LABS: ALBUMIN 3.2 g/dL (3.4-5.0); BILIRUBIN,TOTAL 0.4 mg/dL (0.1-1.0); TOTAL PROTEIN, SERUM 6.6 g/dL (6.4-8.2)
[2017-11-24] MEDS ORDERED: CALCIUM GLUCONATE 100 MG/ML 10 ML IVP ONE (16:45)
[2017-11-24] MEDS ORDERED: SODIUM POLYSTYRENE SULFONATE 15 GM/60 ML SUSPENSION BOTTLE PO ONE (16:45)
[2017-11-24 17:27] VITALS: BP 110/75
== END 2017-11-24 18:40 | disposition short-term general hospital (02) ==
LOC: EMS 12:09
DX: S82.252A Displaced comminuted fracture of shaft of left tibia, initial encounter for closed fracture (principal); S82.432A Displaced oblique fracture of shaft of left fibula, initial encounter for closed fracture; E11.9 Type 2 diabetes mellitus without complications; E78.00 Pure hypercholesterolemia, unspecified; K21.9 Gastro-esophageal reflux disease without esophagitis; I50.9 Heart failure, unspecified; Z88.1 Allergy status to other antibiotic agents; Z88.8 Allergy status to other drugs, medicaments and biological substances; Z79.899 Other long term (current) drug therapy; Z87.891 Personal history of nicotine dependence; W01.198A Fall on same level from slipping, tripping and stumbling with subsequent striking against other object, initial encounter; Y93.89 Activity, other specified; Y92.091 Bathroom in other non-institutional residence as the place of occurrence of the external cause; Y99.8 Other external cause status
CPT/HCPCS: 29505; 36415; 71045; 73552; 73590; 73630; 80053; 82962; 84484; 85025; 93005; 96374; 96375; 99291; J0610; J2405; J3010; 29540

== ENCOUNTER 2018-06-01 09:57 | Emergency (ER) | payer OTHER ==
[~2018-06-01] VITALS: Ht 165.1 cm; Wt 79.5 kg
[~2018-06-01 09:57] MED LIST changes: -LOSA50TA37 PO; +LOSA50TA64 PO
[2018-06-01 10:24] LABS: GLUCOSE,POINT OF CARE 93 MG/DL (70-110)
[2018-06-01 10:32] LABS: BASOPHILS % (AUTO) 0.4 % (0.0-2.0); EOSINOPHILS % (AUTO) 2.4 % (1.0-6.0); HEMOGLOBIN 11.2 g/dL (12.0-16.0); LYMPHOCYTES # (AUTO) 1.2 K/uL (1.0-4.8); LYMPHOCYTES % (AUTO) 15.9 % (22.0-44.0); MEAN CORPUSCULAR HEMOGLOBIN 29.2 pg (26.0-34.0); MEAN CORPUSCULAR HGB CONC 32.1 G/dL (31.0-37.0); MEAN CORPUSCULAR VOLUME 91 fL (80-100); MONOCYTES # (AUTO) 0.7 K/uL (0.1-1.0); MONOCYTES % (AUTO) 8.4 % (2.0-9.0); NEUTROPHILS # (AUTO) 5.6 K/uL (1.8-7.7); NEUTROPHILS % (AUTO) 72.9 % (40.0-70.0); PLATELET COUNT (AUTO) 273 K/uL (150-450); RED BLOOD CELL COUNT(AUTO) 3.85 MIL/uL (4.00-5.20); RED CELL DISTRIBUTION WIDTH 18.9 % (11.5-14.5)
[2018-06-01] MEDS ORDERED: INSULIN REGULAR, HUMAN 100 UNITS/ML SQ ONE (10:45)
[2018-06-01 10:47] LABS: CALCIUM, TOTAL 8.6 mg/dL (8.8-10.5); CREATININE 6.67 mg/dL (0.60-1.30); POTASSIUM 5.1 mmol/L (3.5-5.1)
[2018-06-01 10:53] LABS: ALBUMIN 3.6 g/dL (3.4-5.0); BILIRUBIN,TOTAL 0.3 mg/dL (0.1-1.0); TOTAL PROTEIN, SERUM 6.5 g/dL (6.4-8.2)
[2018-06-01] MEDS ORDERED: APIX2.5T PO (10:56)
[2018-06-01] MEDS ORDERED: ISOSORBIDE DINITRATE 10 MG TABLET PO ONE (11:00)
[2018-06-01] MEDS ORDERED: LOSARTAN POTASSIUM 50 MG TABLET PO ONE (11:00)
[2018-06-01] MEDS ORDERED: LamoTRIgine 100 MG TABLET PO ONE (11:00)
[2018-06-01] MEDS ORDERED: LevETIRAcetam 500 MG TABLET PO ONE (11:00)
[2018-06-01] MEDS ORDERED: APIXABAN 5 MG TABLET PO ONE (11:00)
[2018-06-01] MEDS ORDERED: LORazepam 1 MG TABLET PO ONE (12:45)
[2018-06-01 13:55] VITALS: BP 156/74
== END 2018-06-01 15:10 | disposition home or self-care (01) ==
LOC: EMS 09:57
DX: F41.9 Anxiety disorder, unspecified (principal); R00.0 Tachycardia, unspecified
CPT/HCPCS: 93005; J1815

== ENCOUNTER 2018-08-09 11:31 | Emergency (ER) | payer OTHER, MEDICAID ==
[~2018-08-09] VITALS: Ht 167.6 cm; Wt 88.3 kg
[~2018-08-09 11:31] MED LIST changes: +AMIO400T4 PO; +APIX2.5T PO; -APIX5TAB PO; -ASPI-1182 PO; -AUD NEB; +DOCU100C33 PO; -DOXE4VIA IV; -EPOE10003 SQ; -EPOE20002 SQ; -LOSA50TA64 PO; +METO25 PO; +PANT40TA25 PO; -PHOSLOC PO; +SEVEC800 PO; -TRAM50TA4 PO
[2018-08-09] MEDS ORDERED: ONDANSETRON HCL 4 MG/2 ML VIAL IVP ONE (13:15)
[2018-08-09 13:44] LABS: BASOPHILS % (AUTO) 0.7 % (0.0-2.0); EOSINOPHILS % (AUTO) 0.9 % (1.0-6.0); HEMATOCRIT 31.1 % (36-46); HEMOGLOBIN 9.5 g/dL (12.0-16.0); LYMPHOCYTES # (AUTO) 0.7 K/uL (1.0-4.8); LYMPHOCYTES % (AUTO) 10.5 % (22.0-44.0); MEAN CORPUSCULAR HEMOGLOBIN 28.3 pg (26.0-34.0); MEAN CORPUSCULAR HGB CONC 30.5 G/dL (31.0-37.0); MEAN CORPUSCULAR VOLUME 93 fL (80-100); MONOCYTES # (AUTO) 0.8 K/uL (0.1-1.0); MONOCYTES % (AUTO) 12.5 % (2.0-9.0); NEUTROPHILS # (AUTO) 4.7 K/uL (1.8-7.7); NEUTROPHILS % (AUTO) 75.4 % (40.0-70.0); PLATELET COUNT (AUTO) 191 K/uL (150-450); RED BLOOD CELL COUNT(AUTO) 3.35 MIL/uL (4.00-5.20); RED CELL DISTRIBUTION WIDTH 18.8 % (11.5-14.5)
[2018-08-09 13:52] LABS: CALCIUM, TOTAL 8.3 mg/dL (8.8-10.5); CREATININE 4.09 mg/dL (0.60-1.30); POTASSIUM 5.2 mmol/L (3.5-5.1)
[2018-08-09 14:00] LABS: BILIRUBIN,TOTAL 0.7 mg/dL (0.1-1.0); TOTAL PROTEIN, SERUM 5.9 g/dL (6.4-8.2)
[2018-08-09] MEDS ORDERED: SODIUM POLYSTYRENE SULFONATE 15 GM/60 ML SUSPENSION BOTTLE PO ONE (15:15)
[2018-08-09] MEDS ORDERED: METOPROLOL TARTRATE 50 MG TABLET PO ONE (15:45)
[2018-08-09] MEDS ORDERED: ISOSORBIDE DINITRATE 10 MG TABLET PO ONE (15:45)
[2018-08-09] MEDS ORDERED: LevETIRAcetam 500 MG TABLET PO ONE (15:45)
[2018-08-09] MEDS ORDERED: AMIODARONE HCL 200 MG TABLET PO ONE (15:45)
[2018-08-09] MEDS ORDERED: LevETIRAcetam 1,000 MG in DEXTROSE 5%-WATER 100 ML IV ONE (16:15)
[2018-08-09 17:43] VITALS: BP 138/89
== END 2018-08-09 18:05 | disposition home or self-care (01) ==
LOC: EMS 11:32
DX: E11.22 Type 2 diabetes mellitus with diabetic chronic kidney disease (principal); N18.6 End stage renal disease; D64.9 Anemia, unspecified; R56.9 Unspecified convulsions; E87.5 Hyperkalemia; I48.91 Unspecified atrial fibrillation; I50.9 Heart failure, unspecified; E78.00 Pure hypercholesterolemia, unspecified; Z88.0 Allergy status to penicillin; Z88.5 Allergy status to narcotic agent; Z79.01 Long term (current) use of anticoagulants; Z79.899 Other long term (current) drug therapy; Z99.2 Dependence on renal dialysis
CPT/HCPCS: 36415; 71045; 80053; 82962; 84484; 85025; 93005; 96365; 96375; 99284; J0712; J2405; J7060

== ENCOUNTER 2018-08-16 05:20 | Emergency (ER) | payer OTHER, MEDICAID ==
[~2018-08-16] VITALS: Ht 165.1 cm; Wt 88.0 kg
[2018-08-16 06:20] LABS: BASOPHILS % (AUTO) 0.7 % (0.0-2.0); EOSINOPHILS % (AUTO) 3.1 % (1.0-6.0); HEMATOCRIT 31.4 % (36-46); HEMOGLOBIN 9.7 g/dL (12.0-16.0); LYMPHOCYTES # (AUTO) 0.8 K/uL (1.0-4.8); LYMPHOCYTES % (AUTO) 14.7 % (22.0-44.0); MEAN CORPUSCULAR HEMOGLOBIN 28.6 pg (26.0-34.0); MEAN CORPUSCULAR HGB CONC 30.8 G/dL (31.0-37.0); MEAN CORPUSCULAR VOLUME 93 fL (80-100); MONOCYTES # (AUTO) 0.7 K/uL (0.1-1.0); NEUTROPHILS # (AUTO) 3.5 K/uL (1.8-7.7); NEUTROPHILS % (AUTO) 68.5 % (40.0-70.0); PLATELET COUNT (AUTO) 140 K/uL (150-450); RED BLOOD CELL COUNT(AUTO) 3.38 MIL/uL (4.00-5.20); RED CELL DISTRIBUTION WIDTH 20.7 % (11.5-14.5)
[2018-08-16 06:26] LABS: CALCIUM, TOTAL 8.4 mg/dL (8.8-10.5); CREATININE 3.83 mg/dL (0.60-1.30); POTASSIUM 4.3 mmol/L (3.5-5.1)
[2018-08-16] MEDS ORDERED: ONDANSETRON HCL 4 MG/2 ML VIAL IVP ONE (06:30)
[2018-08-16 06:33] LABS: ALBUMIN 2.9 g/dL (3.4-5.0); BILIRUBIN,TOTAL 0.7 mg/dL (0.1-1.0); TOTAL PROTEIN, SERUM 5.8 g/dL (6.4-8.2)
[2018-08-16 06:54] LABS: PROTHROMBIN TIME 10.7 SEC (9.4-11.6)
[2018-08-16] MEDS ORDERED: LEVOFLOXACIN 750 MG/D5% WATER 150 ML IV ONE (08:15)
[2018-08-16] MEDS ORDERED: FUROSEMIDE 40 MG/4 ML VIAL IVP ONE (12:00)
[2018-08-16] MEDS ORDERED: NITROGLYCERIN 2% (1 GM=INCH) PACKET TP ONE (12:00)
[2018-08-16 13:57] VITALS: BP 126/68
== END 2018-08-16 15:05 | disposition short-term general hospital (02) ==
LOC: EMS 05:21
DX: J18.9 Pneumonia, unspecified organism (principal); K42.9 Umbilical hernia without obstruction or gangrene; I13.2 Hypertensive heart and chronic kidney disease with heart failure and with stage 5 chronic kidney disease, or end stage renal disease; E11.22 Type 2 diabetes mellitus with diabetic chronic kidney disease; N18.6 End stage renal disease; I50.9 Heart failure, unspecified; M79.89 Other specified soft tissue disorders; E66.9 Obesity, unspecified; I48.91 Unspecified atrial fibrillation; J44.9 Chronic obstructive pulmonary disease, unspecified; K21.9 Gastro-esophageal reflux disease without esophagitis; E78.00 Pure hypercholesterolemia, unspecified; F17.210 Nicotine dependence, cigarettes, uncomplicated; Z99.2 Dependence on renal dialysis; Z79.4 Long term (current) use of insulin; Z68.32 Body mass index [BMI] 32.0-32.9, adult; Z86.73 Personal history of transient ischemic attack (TIA), and cerebral infarction without residual deficits; Z98.51 Tubal ligation status; Z88.0 Allergy status to penicillin; Z88.5 Allergy status to narcotic agent
CPT/HCPCS: 36415; 51702; 74022; 80053; 82962; 83690; 83880; 84484; 85025; 85610; 85730; 87040; 93005; 96365; 96366; 96375; 99285; J1940; J1956; J2405